=== PATIENT | male | born 1995 | race American Indian/Alaskan Native ===

== ENCOUNTER 2021-07-19 13:03 | Inpatient (IN) | payer SELFPAY ==
[2021-07-19] MEDS ORDERED: LORazepam 2 MG/ML VIAL ONE (13:13)
[2021-07-19] MEDS ORDERED: levETIRAcetam 1000 MG/NS 0.75% 1,000 MG/100 ML BAG IV ONE ×2 (13:16→13:21)
[2021-07-19] MEDS ORDERED: LORazepam 2 MG/ML VIAL IV ONE (13:21)
[2021-07-19] MEDS ORDERED: levETIRAcetam 500 MG in DEXTROSE 5% IN WATER 100 ML IV ONE (13:21)
[2021-07-19] MEDS ORDERED: SODIUM CHLORIDE 0.9% 1000 ML 1,000 ML IV ONE ×2 (13:21→15:16)
[2021-07-19] MEDS ORDERED: propofoL 200 MG/20 ML VIAL IV ONE (13:34)
--- NOTE | 2021-07-19 13:55 | Emergency Department Report ---
HPI - General Chief Complaint: Seizure Time Seen by Provider: 07/19/21 13:19 - HPI HPI: 26-year-old male with history of TBI and seizure disorder noncompliant with medications brought in by EMS after having multiple seizures. It is unknown what seizure medication the patient is supposed to be taking. According to the EMS report, they were called out to the patient's home by the patient's mother who reported that the patient had 3 [id number] seizures lasting approximately 30 seconds. The patient had 2 more seizures in front of the EMS crew and then 3 seizures while in the ambulance in route. He was given 4 mg of IV Ativan which resolved one of the seizures but then shortly thereafter he began with tonic- clonic seizure activity after that. He never regained consciousness between the seizures. His fingerstick blood glucose was 140, blood pressure 130/67, heart rate of 90, and saturation of 99% on room air. Further details of the HPI are thus limited due to the patient's current clinical condition. ED Past Medical Hx - Past Medical History Previous Medical History?: Yes Hx Seizures: Yes ED Review of Systems ROS: Stated complaint: SIEZURE Other details as noted in HPI Comment: Unobtainable due to pts medical conditions Physical Exam - Physical Exam Vital Signs: Vital Signs 07/19/21 13:06 Pulse Rate 70 Respiratory 16 Rate Blood Pressure 136/67 [Left] O2 Sat by Pulse 100 Oximetry Physical Exam: GENERAL: Well developed and well nourished. Obtunded and unresponsive. HEAD: Normocephalic. No obvious signs of trauma. ENT: Moist mucous membranes. Foaming at the mouth. EYES: Patient's eyes are closed. When the eyelids are retracted, the right pupil is dilated while the left is constricted. The left eyes deviated up and out. Both pupils are reactive to light. NECK: Supple. Trachea is midline. LUNGS: Snoring respirations. Equal chest rise bilaterally. Clear to auscultation bilaterally. CARDIOVASCULAR: Tachycardic but with regular rhythm. No murmurs or rubs. VASCULAR: Cap refill < 2 seconds ABDOMEN: Abdomen is soft and nondistended. There is no significant guarding or rebound. SKIN: Skin is warm and dry NEURO: Patient is obtunded and unresponsive. Shivering and with intermittent posturing and muscle contractions. Increased tone throughout. MUSCULOSKELETAL: No obvious deformities. ED Course Vital Signs 07/19/21 13:06 Pulse Rate 70 Respiratory 16 Rate Blood Pressure 136/67 [Left] O2 Sat by Pulse 100 Oximetry - Intubation Sedative: Etomidate Mg Given: 20 Paralytic: Rocuronium Mg Given: 100 Laryngoscope: fiberoptic video scope Size: 4 Assist Device Used: fiberoptic device ET Tube Size: 7.5 Tube Secured Depth (cm): 24 Tube Secured Location: lips Tube Placement Confirmation: visualized tube passing t, equal breath sounds bilat, confirmation by capnometr Patient Tolerated Procedure: well, no complications Intubation Complications: none ED Medical Decision Making - Lab Data Result diagrams: 07/19/21 14:21 07/19/21 14:21 Lab Results 07/19/21 07/19/21 07/19/21 Range/Units 14:21 14:21 14:21 WBC 27.8 H (4.5-11.0) K/mm3 RBC 5.28 H (3.65-5.03) M/mm3 Hgb 16.2 H (11.8-15.2) gm/dl Hct 49.5 H (35.5-45.6) % MCV 94 (84-94) fl MCH 31 (28-32) pg MCHC 33 (32-34) % RDW 13.5 (13.2-15.2) % Plt Count 247 (140-440) K/mm3 Add Manual Diff Complete Total Counted 100 Seg Neuts % (Manual) 90.0 H (40.0-70.0) % Band Neutrophils % 0 % Lymphocytes % (Manual) 5.0 L (13.4-35.0) % Reactive Lymphs % (Man) 1.0 % Monocytes % (Manual) 1.0 (0.0-7.3) % Eosinophils % (Manual) 2.0 (0.0-4.3) % Basophils % (Manual) 0 (0.0-1.8) % Metamyelocytes % 1.0 % Myelocytes % 0 % Promyelocytes % 0 % Blast Cells % 0 % Nucleated RBC % Not Reportable Seg Neutrophils # Man 25.0 H (1.8-7.7) K/mm3 Band Neutrophils # 0.0 K/mm3 Lymphocytes # (Manual) 1.4 (1.2-5.4) K/mm3 Abs React Lymphs (Man) 0.3 K/mm3 Monocytes # (Manual) 0.3 (0.0-0.8) K/mm3 Eosinophils # (Manual) 0.6 H (0.0-0.4) K/mm3 Basophils # (Manual) 0.0 (0.0-0.1) K/mm3 Metamyelocytes # 0.3 K/mm3 Myelocytes # 0.0 K/mm3 Promyelocytes # 0.0 K/mm3 Blast Cells # 0.0 K/mm3 WBC Morphology Not Reportable Hypersegmented Neuts Not Reportable Hyposegmented Neuts Not Reportable Hypogranular Neuts Not Reportable Smudge Cells Not Reportable Toxic Granulation Not Reportable Toxic Vacuolation Not Reportable Dohle Bodies Not Reportable Pelger-Huet Anomaly Not Reportable Yvon Rods Not Reportable Platelet Estimate Consistent w auto Clumped Platelets Not Reportable Plt Clumps, EDTA Not Reportable Large Platelets Not Reportable Giant Platelets Not Reportable Platelet Satelliting Not Reportable Plt Morphology Comment Not Reportable RBC Morphology Normal Dimorphic RBCs Not Reportable Polychromasia Not Reportable Hypochromasia Not Reportable Poikilocytosis Not Reportable Anisocytosis Not Reportable Microcytosis Not Reportable Macrocytosis Not Reportable Spherocytes Not Reportable Pappenheimer Bodies Not Reportable Sickle Cells Not Reportable Target Cells Not Reportable Tear Drop Cells Not Reportable Ovalocytes Not Reportable Helmet Cells Not Reportable Benavides-Nicholls Bodies Not Reportable [place] Rings Not Reportable [place] Cells Not Reportable Bite Cells Not Reportable Crenated Cell Not Reportable Elliptocytes Not Reportable Acanthocytes (Spur) Not Reportable Rouleaux Not Reportable Hemoglobin C Crystals Not Reportable Schistocytes Not Reportable Malaria parasites Not Reportable Heath Bodies Not Reportable Hem Pathologist Commnt No PT 15.3 H (12.2-14.9) Sec. INR 1.09 (0.87-1.13) APTT 25.8 (24.2-36.6) Sec. ABG pH (7.350-7.450) pH Units ABG pCO2 mm Hg ABG pO2 (80.0-90.0) mm Hg ABG HCO3 (20.0-26.0) mmol/L ABG O2 Saturation (95.0-99.0) % ABG O2 Content (0.0-44) ABG Base Excess (-2.0-3.0) mmol/L ABG Hemoglobin (14.0-18.0) gm/dl ABG Carboxyhemoglobin (0.0-5.0) % ABG Methemoglobin (0.0-1.5) % Oxyhemoglobin (95.0-99.0) % FiO2 % Sodium 143 (137-145) mmol/L Potassium 3.4 L (3.6-5.0) mmol/L Chloride 107.5 H (98-107) mmol/L Carbon Dioxide 15 L (22-30) mmol/L Anion Gap 24 mmol/L BUN 15 (9-20) mg/dL Creatinine 1.4 H (0.8-1.3) mg/dL Estimated GFR > 60 ml/min BUN/Creatinine Ratio 11 % Glucose 108 H (75-100) mg/dL Lactic Acid (0.7-2.0) mmol/L Calcium 8.5 (8.4-10.2) mg/dL Magnesium 2.80 H (1.7-2.3) mg/dL Total Bilirubin < 0.20 (0.1-1.2) mg/dL Direct Bilirubin < 0.2 (0-0.2) mg/dL Indirect Bilirubin 0.0 mg/dL AST 44 H (5-40) units/L ALT 23 (7-56) units/L Alkaline Phosphatase 79 (35-129) units/L Ammonia (25-60) umol/L Total Protein 7.4 (6.3-8.2) g/dL Albumin 4.8 (3.9-5) g/dL Albumin/Globulin Ratio 1.8 % Urine Color (Yellow) Urine Turbidity (Clear) Urine pH (5.0-7.0) Ur Specific [place] (1.003-1.030) Urine Protein (Negative) mg/dL Urine Glucose (UA) (Negative) mg/dL Urine Ketones (Negative) mg/dL Urine Blood (Negative) Urine Nitrite (Negative) Urine Bilirubin (Negative) Urine Urobilinogen (<2.0) mg/dL Ur Leukocyte Esterase (Negative) Urine WBC (Auto) (0.0-6.0) /HPF Urine RBC (Auto) (0.0-6.0) /HPF Urine Bacteria (Auto) (Negative) /HPF Calcium Oxalate Crystal Hyaline Casts /LPF Urine Mucus /HPF Salicylates (2.8-20.0) mg/dL Urine Opiates Screen Urine Methadone Screen Acetaminophen (10.0-30.0) ug/mL Ur Barbiturates Screen Ur Phencyclidine Scrn Ur Amphetamines Screen U Benzodiazepines Scrn Urine Cocaine Screen U Marijuana (THC) Screen Drugs of Abuse Note Plasma/Serum Alcohol (0-0.07) % 07/19/21 07/19/21 07/19/21 Range/Units 14:21 14:21 14:21 WBC (4.5-11.0) K/mm3 RBC (3.65-5.03) M/mm3 Hgb (11.8-15.2) gm/dl Hct (35.5-45.6) % MCV (84-94) fl MCH (28-32) pg MCHC (32-34) % RDW (13.2-15.2) % Plt Count (140-440) K/mm3 Add Manual Diff Total Counted Seg Neuts % (Manual) (40.0-70.0) % Band Neutrophils % % Lymphocytes % (Manual) (13.4-35.0) % Reactive Lymphs % (Man) % Monocytes % (Manual) (0.0-7.3) % Eosinophils % (Manual) (0.0-4.3) % Basophils % (Manual) (0.0-1.8) % Metamyelocytes % % Myelocytes % % Promyelocytes % % Blast Cells % % Nucleated RBC % Seg Neutrophils # Man (1.8-7.7) K/mm3 Band Neutrophils # K/mm3 Lymphocytes # (Manual) (1.2-5.4) K/mm3 Abs React Lymphs (Man) K/mm3 Monocytes # (Manual) (0.0-0.8) K/mm3 Eosinophils # (Manual) (0.0-0.4) K/mm3 Basophils # (Manual) (0.0-0.1) K/mm3 Metamyelocytes # K/mm3 Myelocytes # K/mm3 Promyelocytes # K/mm3 Blast Cells # K/mm3 WBC Morphology Hypersegmented Neuts Hyposegmented Neuts Hypogranular Neuts Smudge Cells Toxic Granulation Toxic Vacuolation Dohle Bodies Pelger-Huet Anomaly Yvon Rods Platelet Estimate Clumped Platelets Plt Clumps, EDTA Large Platelets Giant Platelets Platelet Satelliting Plt Morphology Comment RBC Morphology Dimorphic RBCs Polychromasia Hypochromasia Poikilocytosis Anisocytosis Microcytosis Macrocytosis Spherocytes Pappenheimer Bodies Sickle Cells Target Cells Tear Drop Cells Ovalocytes Helmet Cells Benavides-Nicholls Bodies [place] Rings [place] Cells Bite Cells Crenated Cell Elliptocytes Acanthocytes (Spur) Rouleaux Hemoglobin C Crystals Schistocytes Malaria parasites Heath Bodies Hem Pathologist Commnt PT (12.2-14.9) Sec. INR (0.87-1.13) APTT (24.2-36.6) Sec. ABG pH (7.350-7.450) pH Units ABG pCO2 mm Hg ABG pO2 (80.0-90.0) mm Hg ABG HCO3 (20.0-26.0) mmol/L ABG O2 Saturation (95.0-99.0) % ABG O2 Content (0.0-44) ABG Base Excess (-2.0-3.0) mmol/L ABG Hemoglobin (14.0-18.0) gm/dl ABG Carboxyhemoglobin (0.0-5.0) % ABG Methemoglobin (0.0-1.5) % Oxyhemoglobin (95.0-99.0) % FiO2 % Sodium (137-145) mmol/L Potassium (3.6-5.0) mmol/L Chloride (98-107) mmol/L Carbon Dioxide (22-30) mmol/L Anion Gap mmol/L BUN (9-20) mg/dL Creatinine (0.8-1.3) mg/dL Estimated GFR ml/min BUN/Creatinine Ratio % Glucose (75-100) mg/dL Lactic Acid (0.7-2.0) mmol/L Calcium (8.4-10.2) mg/dL Magnesium (1.7-2.3) mg/dL Total Bilirubin (0.1-1.2) mg/dL Direct Bilirubin (0-0.2) mg/dL Indirect Bilirubin mg/dL AST (5-40) units/L ALT (7-56) units/L Alkaline Phosphatase (35-129) units/L Ammonia 94.0 H (25-60) umol/L Total Protein (6.3-8.2) g/dL Albumin (3.9-5) g/dL Albumin/Globulin Ratio % Urine Color (Yellow) Urine Turbidity (Clear) Urine pH (5.0-7.0) Ur Specific [place] (1.003-1.030) Urine Protein (Negative) mg/dL Urine Glucose (UA) (Negative) mg/dL Urine Ketones (Negative) mg/dL Urine Blood (Negative) Urine Nitrite (Negative) Urine Bilirubin (Negative) Urine Urobilinogen (<2.0) mg/dL Ur Leukocyte Esterase (Negative) Urine WBC (Auto) (0.0-6.0) /HPF Urine RBC (Auto) (0.0-6.0) /HPF Urine Bacteria (Auto) (Negative) /HPF Calcium Oxalate Crystal Hyaline Casts /LPF Urine Mucus /HPF Salicylates < 0.3 L (2.8-20.0) mg/dL Urine Opiates Screen Urine Methadone Screen Acetaminophen 5.0 L (10.0-30.0) ug/mL Ur Barbiturates Screen Ur Phencyclidine Scrn Ur Amphetamines Screen U Benzodiazepines Scrn Urine Cocaine Screen U Marijuana (THC) Screen Drugs of Abuse Note Plasma/Serum Alcohol (0-0.07) % 07/19/21 07/19/21 07/19/21 Range/Units 14:21 14:21 14:30 WBC (4.5-11.0) K/mm3 RBC (3.65-5.03) M/mm3 Hgb (11.8-15.2) gm/dl Hct (35.5-45.6) % MCV (84-94) fl MCH (28-32) pg MCHC (32-34) % RDW (13.2-15.2) % Plt Count (140-440) K/mm3 Add Manual Diff Total Counted Seg Neuts % (Manual) (40.0-70.0) % Band Neutrophils % % Lymphocytes % (Manual) (13.4-35.0) % Reactive Lymphs % (Man) % Monocytes % (Manual) (0.0-7.3) % Eosinophils % (Manual) (0.0-4.3) % Basophils % (Manual) (0.0-1.8) % Metamyelocytes % % Myelocytes % % Promyelocytes % % Blast Cells % % Nucleated RBC % Seg Neutrophils # Man (1.8-7.7) K/mm3 Band Neutrophils # K/mm3 Lymphocytes # (Manual) (1.2-5.4) K/mm3 Abs React Lymphs (Man) K/mm3 Monocytes # (Manual) (0.0-0.8) K/mm3 Eosinophils # (Manual) (0.0-0.4) K/mm3 Basophils # (Manual) (0.0-0.1) K/mm3 Metamyelocytes # K/mm3 Myelocytes # K/mm3 Promyelocytes # K/mm3 Blast Cells # K/mm3 WBC Morphology TNR Hypersegmented Neuts Hyposegmented Neuts Hypogranular Neuts Smudge Cells Toxic Granulation Toxic Vacuolation Dohle Bodies Pelger-Huet Anomaly Yvon Rods Platelet Estimate Clumped Platelets Plt Clumps, EDTA Large Platelets Giant Platelets Platelet Satelliting Plt Morphology Comment RBC Morphology Dimorphic RBCs Polychromasia Hypochromasia Poikilocytosis Anisocytosis Microcytosis Macrocytosis Spherocytes Pappenheimer Bodies Sickle Cells Target Cells Tear Drop Cells Ovalocytes Helmet Cells Benavides-Nicholls Bodies [place] Rings [place] Cells Bite Cells Crenated Cell Elliptocytes Acanthocytes (Spur) Rouleaux Hemoglobin C Crystals Schistocytes Malaria parasites Heath Bodies Hem Pathologist Commnt PT (12.2-14.9) Sec. INR (0.87-1.13) APTT (24.2-36.6) Sec. ABG pH (7.350-7.450) pH Units ABG pCO2 mm Hg ABG pO2 (80.0-90.0) mm Hg ABG HCO3 (20.0-26.0) mmol/L ABG O2 Saturation (95.0-99.0) % ABG O2 Content (0.0-44) ABG Base Excess (-2.0-3.0) mmol/L ABG Hemoglobin (14.0-18.0) gm/dl ABG Carboxyhemoglobin (0.0-5.0) % ABG Methemoglobin (0.0-1.5) % Oxyhemoglobin (95.0-99.0) % FiO2 % Sodium (137-145) mmol/L Potassium (3.6-5.0) mmol/L Chloride (98-107) mmol/L Carbon Dioxide (22-30) mmol/L Anion Gap mmol/L BUN (9-20) mg/dL Creatinine (0.8-1.3) mg/dL Estimated GFR ml/min BUN/Creatinine Ratio % Glucose (75-100) mg/dL Lactic Acid (0.7-2.0) mmol/L Calcium (8.4-10.2) mg/dL Magnesium (1.7-2.3) mg/dL Total Bilirubin (0.1-1.2) mg/dL Direct Bilirubin (0-0.2) mg/dL Indirect Bilirubin mg/dL AST (5-40) units/L ALT (7-56) units/L Alkaline Phosphatase (35-129) units/L Ammonia (25-60) umol/L Total Protein (6.3-8.2) g/dL Albumin (3.9-5) g/dL Albumin/Globulin Ratio % Urine Color Straw (Yellow) Urine Turbidity Clear (Clear) Urine pH 5.0 (5.0-7.0) Ur Specific [place] 1.011 (1.003-1.030) Urine Protein 30 mg/dl (Negative) mg/dL Urine Glucose (UA) Neg (Negative) mg/dL Urine Ketones Neg (Negative) mg/dL Urine Blood Sm (Negative) Urine Nitrite Neg (Negative) Urine Bilirubin Neg (Negative) Urine Urobilinogen < 2.0 (<2.0) mg/dL Ur Leukocyte Esterase Neg (Negative) Urine WBC (Auto) 1.0 (0.0-6.0) /HPF Urine RBC (Auto) 0.0 (0.0-6.0) /HPF Urine Bacteria (Auto) 1+ (Negative) /HPF Calcium Oxalate Crystal 1+ Hyaline Casts 1 /LPF Urine Mucus Few /HPF Salicylates (2.8-20.0) mg/dL Urine Opiates Screen Urine Methadone Screen Acetaminophen (10.0-30.0) ug/mL Ur Barbiturates Screen Ur Phencyclidine Scrn Ur Amphetamines Screen U Benzodiazepines Scrn Urine Cocaine Screen U Marijuana (THC) Screen Drugs of Abuse Note Plasma/Serum Alcohol < 0.01 (0-0.07) % 07/19/21 07/19/21 07/19/21 Range/Units 14:30 14:45 15:59 WBC (4.5-11.0) K/mm3 RBC (3.65-5.03) M/mm3 Hgb (11.8-15.2) gm/dl Hct (35.5-45.6) % MCV (84-94) fl MCH (28-32) pg MCHC (32-34) % RDW (13.2-15.2) % Plt Count (140-440) K/mm3 Add Manual Diff Total Counted Seg Neuts % (Manual) (40.0-70.0) % Band Neutrophils % % Lymphocytes % (Manual) (13.4-35.0) % Reactive Lymphs % (Man) % Monocytes % (Manual) (0.0-7.3) % Eosinophils % (Manual) (0.0-4.3) % Basophils % (Manual) (0.0-1.8) % Metamyelocytes % % Myelocytes % % Promyelocytes % % Blast Cells % % Nucleated RBC % Seg Neutrophils # Man (1.8-7.7) K/mm3 Band Neutrophils # K/mm3 Lymphocytes # (Manual) (1.2-5.4) K/mm3 Abs React Lymphs (Man) K/mm3 Monocytes # (Manual) (0.0-0.8) K/mm3 Eosinophils # (Manual) (0.0-0.4) K/mm3 Basophils # (Manual) (0.0-0.1) K/mm3 Metamyelocytes # K/mm3 Myelocytes # K/mm3 Promyelocytes # K/mm3 Blast Cells # K/mm3 WBC Morphology Hypersegmented Neuts Hyposegmented Neuts Hypogranular Neuts Smudge Cells Toxic Granulation Toxic Vacuolation Dohle Bodies Pelger-Huet Anomaly Yvon Rods Platelet Estimate Clumped Platelets Plt Clumps, EDTA Large Platelets Giant Platelets Platelet Satelliting Plt Morphology Comment RBC Morphology Dimorphic RBCs Polychromasia Hypochromasia Poikilocytosis Anisocytosis Microcytosis Macrocytosis Spherocytes Pappenheimer Bodies Sickle Cells Target Cells Tear Drop Cells Ovalocytes Helmet Cells Benavides-Nicholls Bodies [place] Rings Unique Cells Bite Cells Crenated Cell Elliptocytes Acanthocytes (Spur) Rouleaux Hemoglobin C Crystals Schistocytes Malaria parasites Heath Bodies Hem Pathologist Commnt PT (12.2-14.9) Sec. INR (0.87-1.13) APTT (24.2-36.6) Sec. ABG pH 7.174 L* (7.350-7.450) pH Units ABG pCO2 47.7 mm Hg ABG pO2 104.0 H (80.0-90.0) mm Hg ABG HCO3 17.2 L (20.0-26.0) mmol/L ABG O2 Saturation 96.7 (95.0-99.0) % ABG O2 Content 21.4 (0.0-44) ABG Base Excess -11.3 L (-2.0-3.0) mmol/L ABG Hemoglobin 16.2 (14.0-18.0) gm/dl ABG Carboxyhemoglobin 2.0 (0.0-5.0) % ABG Methemoglobin 0.8 (0.0-1.5) % Oxyhemoglobin 94.1 L (95.0-99.0) % FiO2 70 % Sodium (137-145) mmol/L Potassium (3.6-5.0) mmol/L Chloride (98-107) mmol/L Carbon Dioxide (22-30) mmol/L Anion Gap mmol/L BUN (9-20) mg/dL Creatinine (0.8-1.3) mg/dL Estimated GFR ml/min BUN/Creatinine Ratio % Glucose (75-100) mg/dL Lactic Acid 3.50 H* (0.7-2.0) mmol/L Calcium (8.4-10.2) mg/dL Magnesium (1.7-2.3) mg/dL Total Bilirubin (0.1-1.2) mg/dL Direct Bilirubin (0-0.2) mg/dL Indirect Bilirubin mg/dL AST (5-40) units/L ALT (7-56) units/L Alkaline Phosphatase (35-129) units/L Ammonia (25-60) umol/L Total Protein (6.3-8.2) g/dL Albumin (3.9-5) g/dL Albumin/Globulin Ratio % Urine Color (Yellow) Urine Turbidity (Clear) Urine pH (5.0-7.0) Ur Specific [place] (1.003-1.030) Urine Protein (Negative) mg/dL Urine Glucose (UA) (Negative) mg/dL Urine Ketones (Negative) mg/dL Urine Blood (Negative) Urine Nitrite (Negative) Urine Bilirubin (Negative) Urine Urobilinogen (<2.0) mg/dL Ur Leukocyte Esterase (Negative) Urine WBC (Auto) (0.0-6.0) /HPF Urine RBC (Auto) (0.0-6.0) /HPF Urine Bacteria (Auto) (Negative) /HPF Calcium Oxalate Crystal Hyaline Casts /LPF Urine Mucus /HPF Salicylates (2.8-20.0) mg/dL Urine Opiates Screen Negative Urine Methadone Screen Negative Acetaminophen (10.0-30.0) ug/mL Ur Barbiturates Screen Negative Ur Phencyclidine Scrn Negative Ur Amphetamines Screen Negative U Benzodiazepines Scrn Negative Urine Cocaine Screen Negative U Marijuana (THC) Screen Negative Drugs of Abuse Note Disclamer Plasma/Serum Alcohol (0-0.07) % - Radiology Data Radiology results: report reviewed - Medical Decision Making 26-year-old male with history of TBI and seizure disorder known to be noncompliant with medications brought in by EMS after multiple seizures at home. He continued to have 3 seizures while in route without regaining consciousness between episodes. He was given 4 mg of IV lorazepam. Upon arrival to emergency department, the patient had another seizure. He was given 4 mg of IV Ativan as well as a loading dose of 1 g of Keppra. He continues to exhibit s hivering, muscle contractions, and physical examination reveals anisocoria as well as left eye deviation up and out. Given that the patient's presentation consistent with status epilepticus, I moved to emergently intubate the patient to secure his airway and to start a propofol drip. Will initiate propofol drip for sedation and add on Versed drip as needed. We will perform very broad work- up including a full set of labs, chest x-ray, CT of the head. We will give 1 L of IV fluids. Chest x-ray reveals no acute abnormalities and ET tube in the correct position Reassessment of the patient after initiation of a propofol drip reveals resolution of previously seen anisocoria and eye deviation as well as resolution of muscle contractions. Will require EEG on admission. ABG reveals metabolic acidosis with pH of 7.17. Labs are significant for several abnormalities including leukocytosis with white blood cell count of 27.8. Hemoglobin is also elevated at 16.2. Creatinine is elevated at 1.4 from unknown baseline. He has hypokalemia with potassium of 3.4 which we will replete. Although I suspect that the patient's leukocytosis may be reactive and secondary to status epilepticus and the marginalization as well as hemoconcentration from severe dehydration, I have initiated full sepsis order set with labs and cultures. We will give broad-spectrum IV vancomycin and ceftriaxone. We will give 30 mL/kg of IV fluid At 3:42 PM I spoke with Dr. Miranda of critical care medicine regarding the case. He accepts the patient for admission to the ICU, agrees with current management CT of the head reveals right frontal lobe encephalomalacia but no acute abnormalities. I spoke with Dr. Sheikh, the on-call hospitalist regarding the case and he accepts the patient for admission will assume care Critical Care Time: Yes Critical care time in (mins) excluding proc time.: 45 Critical care attestation.: If time is entered above; I have spent that time in minutes in the direct care of this critically ill patient, excluding procedure time. Critical care time was spent in the evaluation/assessment, work-up, and management of status epilepticus requiring multiple IV antiepileptics, intubation to secure the airway, review and interpretation of ABG, discussion with specialist, as well as multiple reassessments and reevaluation's ED Disposition Clinical Impression: Metabolic acidosis, Acute respiratory failure with hypoxia, Leukocytosis, Dehydration, Acute kidney injury, Status epilepticus, Hypokalemia Disposition: 09 ADMITTED INPATIENT Is pt being admited?: Yes Condition: Critical Referrals: PRIMARY CARE, [Primary Care Provider] - 3-5 Days
--- NOTE | 2021-07-19 14:15 | XRay Report ---
CHEST 1 VIEW INDICATION: mult seizures ETT and OG. COMPARISON: None. FINDINGS: Support devices: Endotracheal tube tip is approximately 2 cm above the ken. There appears to be an esophagogastric tube with tip projecting at the mid esophagus. Heart: Normal. Lungs/Pleura: No acute pulmonary or pleural findings. IMPRESSION: 1. Endotracheal tube couple centimeters above the ken. 2. There appears to be an orogastric tube with tip at the level of the mid esophagus. This needs to b e removed/repositioned. Signer Name: Noel Galvin MD Signed: 07/19/2021 2:11 PM Workstation Name: [id number]
--- NOTE | 2021-07-19 14:24 | Cat Scan Report ---
CT head/brain wo con INDICATION / CLINICAL INFORMATION: 26 years Male; Multiple seizures, anisocoria. TECHNIQUE: Routine CT head without contrast. All CT scans at this location are performed using CT dos e reduction for ALARA by means of automated exposure control. COMPARISON: None. FINDINGS: BRAIN / INTRACRANIAL CONTENTS: Patient appears to been a craniotomy or trauma in the right posterior frontal region and adjacent parietal region. There is encephalomalacia in the adjacent right frontal lobe region. The brain parenchymal findings also following MCA type pattern in the frontal lobe regio n - old, branch MCA infarct might be considered as well. Please clinically correlate. Otherwise, no acute hemorrhage, mass effect, midline shift, hydrocephalus, or acute, large territori al infarct. No signs of significant atrophy or chronic infarct. No significant white matter abnormali ty seen. CRANIOCERVICAL JUNCTION: No significant abnormality. ORBITS: No significant abnormality of visualized orbits. SINUSES / MASTOIDS: Mild to moderate mucosal thickening seen in the maxillary antra and ethmoids. Sig nificant opacification of the frontal sinuses seen. Mild mucosal thickening seen in the sphenoid. ADDITIONAL FINDINGS: NG tube appears to be coiled in the patient's mouth. IMPRESSION: 1. No focal mass, hemorrhage, hydrocephalus, or acute, large territorial infarct. 2. Area of encephalomalacia in the right frontal lobe. Please clinically correlate. Signer Name: Rashel Bond MD, III Signed: 07/19/2021 2:20 PM Workstation Name: [id number]
[2021-07-19 14:50] LABS: Hematocrit 49.5 % (35.5-45.6); Hemoglobin 16.2 gm/dl (11.8-15.2); Mean Corpuscular HGB Conc 33 % (32-34); Mean Corpuscular Volume 94 fl (84-94); Platelet Count 247 K/mm3 (140-440); Red Blood Count 5.28 M/mm3 (3.65-5.03); Red Cell Distribution Width 13.5 % (13.2-15.2)
[2021-07-19 15:00] LABS: INR 1.09 (0.87-1.13); Partial Thromboplastin Time 25.8 Sec. (24.2-36.6)
[2021-07-19 15:01] LABS: ABG Base Excess -11.3 mmol/L (-2.0-3.0); ABG HCO3 17.2 mmol/L (20.0-26.0); ABG Methemoglobin 0.8 % (0.0-1.5); ABG Oxygen Saturation 96.7 % (95.0-99.0); ABG PCO2 47.7 mm Hg
[2021-07-19 15:03] LABS: Alanine Aminotransferase 23 units/L (7-56); Albumin 4.8 g/dL (3.9-5); BUN/Creatinine Ratio 11; Blood Urea Nitrogen 15 mg/dL (9-20); Calcium 8.5 mg/dL (8.4-10.2); Hemolysis Index 11
[2021-07-19 15:05] LABS: Bilirubin,Direct < 0.2 mg/dL (0-0.2)
[2021-07-19 15:07] LABS: Bacteria,Urine 1+ /HPF (Negative); Bilirubin,Urine NEG (Negative); Blood,Urine SM (Negative); Calcium Oxalate Crystals,Urine 1+; Color,Urine Straw (Yellow); Hyaline Casts,Urine 1 /LPF; Mucus,Urine FEW /HPF; Urobilinogen,Urine < 2.0 mg/dL (<2.0)
[2021-07-19 15:08] LABS: ABG PH 7.174 pH Units (7.350-7.450)
[2021-07-19 15:15] LABS: Amphetamine Screen,Urine Negative; Benzodiazepines Screen,Urine Negative; Cannabinoid Screen,Urine Negative; Cocaine Screen,Urine Negative; Methadone Screen,Urine Negative; Opiate Screen,Urine Negative
[2021-07-19] MEDS ORDERED: cefTRIAXone/NS 2 GM/100 ML 2 GM/100 ML BAG IV ONE (15:17)
[2021-07-19 15:35] LABS: Basophils % (Manual) 0 % (0.0-1.8); Total Cells Counted 100
[2021-07-19 15:37] LABS: Platelet Estimate Consistent w Auto; RBC Morphology Normal
[2021-07-19] MEDS ORDERED: VANCOMYCIN 1,250 MG in SODIUM CHLORIDE 0.9% 500 ML 500 ML IV ONE (16:00)
[2021-07-19] MEDS: MIDAZOLAM 100 MG in SODIUM CHLORIDE 0.9% 80 ML IV ONE (16:36)
[2021-07-19] MEDS ORDERED: ACETAMINOPHEN 650 MG RECT SUPP PR ONE (20:39)
[2021-07-19] MEDS ORDERED: ACETAMINOPHEN 650 MG RECT SUPP PR PRN (20:39)
[2021-07-19] MEDS ORDERED: ACETAMINOPHEN 325 MG RECT SUPP PR ONE (20:39)
[2021-07-19] MEDS ORDERED: ACETAMINOPHEN 325 MG TAB PO PRN (20:47)
[2021-07-19] MEDS ORDERED: MORPHINE 2 MG/1 ML INJ IV PRN (20:47)
[2021-07-19] MEDS ORDERED: ONDANSETRON 4 MG/2 ML INJ IV PRN (20:47)
[2021-07-19] MEDS ORDERED: SODIUM CHLORIDE 0.9% 1000 ML 1,000 ML IV SCH (21:00)
[2021-07-19] MEDS: levETIRAcetam 1,000 MG in DEXTROSE 5% IN WATER 100 ML IV SCH (22:10)
[2021-07-20 04:25] LABS: ABG Base Excess -6.3 mmol/L (-2.0-3.0); ABG HCO3 17.6 mmol/L (20.0-26.0); ABG Methemoglobin 0.9 % (0.0-1.5); ABG Oxygen Saturation 99.4 % (95.0-99.0); ABG PH 7.371 pH Units (7.350-7.450); ABG PO2 227.3 mm Hg (80.0-90.0)
[2021-07-20 06:10] LABS: Hematocrit 45.9 % (35.5-45.6); Mean Corpuscular HGB Conc 33 % (32-34); Mean Corpuscular Volume 92 fl (84-94); Platelet Count 183 K/mm3 (140-440); Red Blood Count 4.96 M/mm3 (3.65-5.03); Red Cell Distribution Width 13.3 % (13.2-15.2)
[2021-07-20 06:40] LABS: Albumin 3.6 g/dL (3.9-5); Calcium 8.5 mg/dL (8.4-10.2)
[2021-07-20 07:05] LABS: Anisocytosis 1+; Band Neutrophils # (Manual) 0.1 K/mm3; Basophils % (Manual) 0 % (0.0-1.8); Eosinophils % (Manual) 0 % (0.0-4.3); Platelet Estimate Consistent w Auto; Total Cells Counted 200
--- NOTE | 2021-07-20 07:55 | History and Physical Report ---
History of Present Illness Date of examination: 07/19/21 Date of admission: 07/19/21 14:00 Chief complaint: Continued seizures since a.m. History of present illness: 25-year-old male with history of traumatic brain injury and seizure disorder noncompliant with medications, brought in by EMS for multiple seizures. Patient is very noncompliant. EMS was called by the patient's mother and report the patient had bacterial [id number] seizures lasting approximately 32seconds to 1 minute. Patient had 2 more seizures in front of the EMS and 3 seizures while in the ambulance. Patient was given 4 mg of area And was brought to the emergency room. In the emergency room because of recurrent seizures patient was intubated for protection of airway. 26-year-old male with history of TBI and seizure disorder noncompliant with medications brought in by EMS after having multiple seizures. It is unknown what seizure medication the patient is supposed to be taking. According to the EMS report, they were called out to the patient's home by the patient's mother who reported that the patient had 3 [id number] seizures lasting approximately 30 seconds. The patient had 2 more seizures in front of the EMS crew and then 3 seizures while in the ambulance in route. He was given 4 mg of IV Ativan which resolved one of the seizures but then shortly thereafter he began with tonic- clonic seizure activity after that. He never regained consciousness between the seizures. His fingerstick blood glucose was 140, blood pressure 130/67, heart rate of 90, and saturation of 99% on room air. Further details of the HPI are thus limited due to the patient's current clinical condition. 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 Skin no rash no itching Psychiatric no depression no homicidal or suicidal tendencies Hematologic no lymphedema or bruising Endocrine no polydipsia no polyuria no cold intolerance no heat intolerance Past History Past Medical History: seizures, other (Traumatic brain injury) Past Surgical History: Other Social history: lives with family Family history: hypertension Medications and Allergies Allergies Allergy/AdvReac Type Severity Reaction Status Date / Time Unable to Assess Allergy Verified 07/19/21 13:14 Active Meds: Active Medications Acetaminophen (Acetaminophen 650 Mg Rect Supp) 650 mg MT Q4H PRN PRN Reason: Fever >101 Enoxaparin Sodium (Enoxaparin 40 Mg/0.4 Ml Inj) 40 mg SUB-Q QDAY@1000 CASSANDRA Propofol (Diprivan 10 Mg/Ml) 1,000 mg in 100 mls @ 1.837 mls/hr IV TITR CASSANDRA; Protocol Last Admin: 07/20/21 03:50 Dose: 122.48 mcg/kg/min, 45 mls/hr Midazolam HCl 100 mg/ Sodium (Chloride) 100 mls @ 1 mls/hr IV TITR ONE; Protocol Stop: 07/23/21 19:57 Last Admin: 07/19/21 16:36 Dose: 1 mg/hr, 1 mls/hr Sodium Chloride (Nacl 0.9% 1000 Ml) 1,000 mls @ 100 mls/hr IV DIRECT CASSANDRA Levetiracetam 1,000 mg/ (Dextrose) 110 mls @ 400 mls/hr IV Q12HR CASSANDRA Last Admin: 07/19/21 22:10 Dose: 400 mls/hr Morphine Sulfate (Morphine 2 Mg/1 Ml Inj) 2 mg IV Q4H PRN PRN Reason: Pain, Moderate (4-6) Ondansetron HCl (Ondansetron 4 Mg/2 Ml Inj) 4 mg IV Q8H PRN PRN Reason: Nausea And Vomiting Sodium Chloride (Sodium Chloride 0.9% 10 Ml Flush Syringe) 10 ml IV BID CASSANDRA Last Admin: 07/19/21 22:10 Dose: 10 ml Sodium Chloride (Sodium Chloride 0.9% 10 Ml Flush Syringe) 10 ml IV PRN PRN PRN Reason: LINE FLUSH Exam - Physical Exam Narrative exam: Patient is intubated and on ventilator Unresponsive - Constitutional Vitals: Temp Pulse Resp BP Pulse Ox 98.9 F 75 22 123/75 100 07/20/21 06:02 07/20/21 07:00 07/20/21 07:00 07/20/21 07:00 07/20/21 07:00 General appearance: Present: no acute distress, well-nourished - EENT Eyes: Present: PERRL ENT: clear oral mucosa - Neck Neck: Present: supple, normal ROM - Respiratory Respiratory effort: normal Respiratory: bilateral: CTA - Cardiovascular Heart rate: 78 Rhythm: regular Heart Sounds: Present: S1 & S2. Absent: rub, click - Extremities Extremities: pulses symmetrical, No edema Peripheral Pulses: within normal limits - Abdominal General gastrointestinal: Present: soft, non-tender, non-distended, normal bowel sounds Male genitourinary: Present: normal - Rectal Rectal Exam: deferred - Integumentary Integumentary: Present: clear, warm, dry - Musculoskeletal Musculoskeletal: strength equal bilaterally, generalized weakness - Psychiatric Psychiatric: other (Patient intubated) - Neurologic Neurologic: moves all extremities, other - Allied Health Allied health notes reviewed: nursing, case management Results - Labs CBC & Chem 7: 07/20/21 05:48 07/20/21 05:48 Labs: Laboratory Last Values WBC 21.0 K/mm3 (4.5-11.0) H 07/20/21 05:48 RBC 4.96 M/mm3 (3.65-5.03) 07/20/21 05:48 Hgb 15.0 gm/dl (11.8-15.2) 07/20/21 05:48 Hct 45.9 % (35.5-45.6) H 07/20/21 05:48 MCV 92 fl (84-94) 07/20/21 05:48 MCH 30 pg (28-32) 07/20/21 05:48 MCHC 33 % (32-34) 07/20/21 05:48 RDW 13.3 % (13.2-15.2) 07/20/21 05:48 Plt Count 183 K/mm3 (140-440) 07/20/21 05:48 Lymph % (Auto) [place] 07/20/21 05:48 [place] % (Auto) [employer] 07/20/21 05:48 Eos % (Auto) [place] 07/20/21 05:48 Baso % (Auto) [place] 07/20/21 05:48 Lymph # (Auto) [place] 07/20/21 05:48 [place] # (Auto) Gra[employer]ger 07/20/21 05:48 Eos # (Auto) [place] [employer] 07/20/21 05:48 Baso # (Auto) [place] [employer] 07/20/21 05:48 Add Manual Diff Complete 07/20/21 05:48 Total Counted 200 07/20/21 05:48 Seg Neutrophils % [place] 07/20/21 05:48 Seg Neuts % (Manual) 91.0 % (40.0-70.0) H 07/20/21 05:48 Band Neutrophils % 0.5 % 07/20/21 05:48 Lymphocytes % (Manual) 6.5 % (13.4-35.0) L 07/20/21 05:48 Reactive Lymphs % (Man) 0 % 07/20/21 05:48 Monocytes % (Manual) 2.0 % (0.0-7.3) 07/20/21 05:48 Eosinophils % (Manual) 0 % (0.0-4.3) 07/20/21 05:48 Basophils % (Manual) 0 % (0.0-1.8) 07/20/21 05:48 Metamyelocytes % 0 % 07/20/21 05:48 Myelocytes % 0 % 07/20/21 05:48 Promyelocytes % 0 % 07/20/21 05:48 Blast Cells % 0 % 07/20/21 05:48 Nucleated RBC % Not Reportable 07/20/21 05:48 Seg Neutrophils # [place]ger 07/20/21 05:48 Seg Neutrophils # Man 19.1 K/mm3 (1.8-7.7) H 07/20/21 05:48 Band Neutrophils # 0.1 K/mm3 07/20/21 05:48 Lymphocytes # (Manual) 1.4 K/mm3 (1.2-5.4) 07/20/21 05:48 Abs React Lymphs (Man) 0.0 K/mm3 07/20/21 05:48 Monocytes # (Manual) 0.4 K/mm3 (0.0-0.8) 07/20/21 05:48 Eosinophils # (Manual) 0.0 K/mm3 (0.0-0.4) 07/20/21 05:48 Basophils # (Manual) 0.0 K/mm3 (0.0-0.1) 07/20/21 05:48 Metamyelocytes # 0.0 K/mm3 07/20/21 05:48 Myelocytes # 0.0 K/mm3 07/20/21 05:48 Promyelocytes # 0.0 K/mm3 07/20/21 05:48 Blast Cells # 0.0 K/mm3 07/20/21 05:48 WBC Morphology Not Reportable 07/20/21 05:48 Hypersegmented Neuts Not Reportable 07/20/21 05:48 Hyposegmented Neuts Not Reportable 07/20/21 05:48 Hypogranular Neuts Not Reportable 07/20/21 05:48 Smudge Cells Not Reportable 07/20/21 05:48 Toxic Granulation Not Reportable 07/20/21 05:48 Toxic Vacuolation Not Reportable 07/20/21 05:48 Dohle Bodies Not Reportable 07/20/21 05:48 Pelger-Huet Anomaly Not Reportable 07/20/21 05:48 Yvon Rods Not Reportable 07/20/21 05:48 Platelet Estimate Consistent w auto 07/20/21 05:48 Clumped Platelets Not Reportable 07/20/21 05:48 Plt Clumps, EDTA Not Reportable 07/20/21 05:48 Large Platelets Not Reportable 07/20/21 05:48 Giant Platelets Not Reportable 07/20/21 05:48 Platelet Satelliting Not Reportable 07/20/21 05:48 Plt Morphology Comment Not Reportable 07/20/21 05:48 RBC Morphology Not Reportable 07/20/21 05:48 Dimorphic RBCs Not Reportable 07/20/21 05:48 Polychromasia Not Reportable 07/20/21 05:48 Hypochromasia Not Reportable 07/20/21 05:48 Poikilocytosis Not Reportable 07/20/21 05:48 Anisocytosis 1+ 07/20/21 05:48 Microcytosis Not Reportable 07/20/21 05:48 Macrocytosis Not Reportable 07/20/21 05:48 Spherocytes Not Reportable 07/20/21 05:48 Pappenheimer Bodies Not Reportable 07/20/21 05:48 Sickle Cells Not Reportable 07/20/21 05:48 Target Cells Not Reportable 07/20/21 05:48 Tear Drop Cells Not Reportable 07/20/21 05:48 Ovalocytes Not Reportable 07/20/21 05:48 Helmet Cells Not Reportable 07/20/21 05:48 Benavides-Bedford Bodies Not Reportable 07/20/21 05:48 [place] Rings Not Reportable 07/20/21 05:48 Sparks Cells Not Reportable 07/20/21 05:48 Bite Cells Not Reportable 07/20/21 05:48 Crenated Cell Not Reportable 07/20/21 05:48 Elliptocytes Not Reportable 07/20/21 05:48 Acanthocytes (Spur) Not Reportable 07/20/21 05:48 Rouleaux Not Reportable 07/20/21 05:48 Hemoglobin C Crystals Not Reportable 07/20/21 05:48 Schistocytes Not Reportable 07/20/21 05:48 Malaria parasites Not Reportable 07/20/21 05:48 Heath Bodies Not Reportable 07/20/21 05:48 Hem Pathologist Commnt No 07/20/21 05:48 PT 15.3 Sec. (12.2-14.9) H 07/19/21 14:21 INR 1.09 (0.87-1.13) 07/19/21 14:21 APTT 25.8 Sec. (24.2-36.6) 07/19/21 14:21 ABG pH 7.371 pH Units (7.350-7.450) 07/20/21 04:12 ABG pCO2 31.0 mm Hg 07/20/21 04:12 ABG pO2 227.3 mm Hg (80.0-90.0) H 07/20/21 04:12 ABG HCO3 17.6 mmol/L (20.0-26.0) L 07/20/21 04:12 ABG O2 Saturation 99.4 % (95.0-99.0) H 07/20/21 04:12 ABG O2 Content 21.7 (0.0-44) 07/20/21 04:12 ABG Base Excess -6.3 mmol/L (-2.0-3.0) L 07/20/21 04:12 ABG Hemoglobin 15.5 gm/dl (14.0-18.0) 07/20/21 04:12 ABG Carboxyhemoglobin 0.9 % (0.0-5.0) 07/20/21 04:12 ABG Methemoglobin 0.9 % (0.0-1.5) 07/20/21 04:12 Oxyhemoglobin 97.6 % (95.0-99.0) 07/20/21 04:12 FiO2 60 % 07/20/21 04:12 Sodium 143 mmol/L (137-145) 07/20/21 05:48 Potassium 3.5 mmol/L (3.6-5.0) L 07/20/21 05:48 Chloride 115.2 mmol/L (98-107) H 07/20/21 05:48 Carbon Dioxide 15 mmol/L (22-30) L 07/20/21 05:48 Anion Gap 16 mmol/L 07/20/21 05:48 BUN 23 mg/dL (9-20) H 07/20/21 05:48 Creatinine 2.5 mg/dL (0.8-1.3) H D 07/20/21 05:48 Estimated GFR 38 ml/min 07/20/21 05:48 BUN/Creatinine Ratio 9 % 07/20/21 05:48 Glucose 90 mg/dL (75-100) 07/20/21 05:48 Lactic Acid 2.00 mmol/L (0.7-2.0) 07/20/21 05:48 Calcium 8.5 mg/dL (8.4-10.2) 07/20/21 05:48 Magnesium 2.80 mg/dL (1.7-2.3) H 07/19/21 14:21 Total Bilirubin 0.80 mg/dL (0.1-1.2) 07/20/21 05:48 Direct Bilirubin < 0.2 mg/dL (0-0.2) 07/19/21 14:21 Indirect Bilirubin 0.0 mg/dL 07/19/21 14:21 AST 30 units/L (5-40) 07/20/21 05:48 ALT 18 units/L (7-56) 07/20/21 05:48 Alkaline Phosphatase 63 units/L (35-129) 07/20/21 05:48 Ammonia 94.0 umol/L (25-60) H 07/19/21 14:21 Total Protein 6.4 g/dL (6.3-8.2) 07/20/21 05:48 Albumin 3.6 g/dL (3.9-5) L 07/20/21 05:48 Albumin/Globulin Ratio 1.3 % 07/20/21 05:48 Urine Color Straw (Yellow) 07/19/21 14:30 Urine Turbidity Clear (Clear) 07/19/21 14:30 Urine pH 5.0 (5.0-7.0) 07/19/21 14:30 Ur Specific [place] 1.011 (1.003-1.030) 07/19/21 14:30 Urine Protein 30 mg/dl mg/dL (Negative) 07/19/21 14:30 Urine Glucose (UA) Neg mg/dL (Negative) 07/19/21 14:30 Urine Ketones Neg mg/dL (Negative) 07/19/21 14:30 Urine Blood Sm (Negative) 07/19/21 14:30 Urine Nitrite Neg (Negative) 07/19/21 14:30 Urine Bilirubin Neg (Negative) 07/19/21 14:30 Urine Urobilinogen < 2.0 mg/dL (<2.0) 07/19/21 14:30 Ur Leukocyte Esterase Neg (Negative) 07/19/21 14:30 Urine WBC (Auto) 1.0 /HPF (0.0-6.0) 07/19/21 14:30 Urine RBC (Auto) 0.0 /HPF (0.0-6.0) 07/19/21 14:30 Urine Bacteria (Auto) 1+ /HPF (Negative) 07/19/21 14:30 Calcium Oxalate Crystal 1+ 07/19/21 14:30 Hyaline Casts 1 /LPF 07/19/21 14:30 Urine Mucus Few /HPF 07/19/21 14:30 Salicylates < 0.3 mg/dL (2.8-20.0) L 07/19/21 14:21 Urine Opiates Screen Negative 07/19/21 14:30 Urine Methadone Screen Negative 07/19/21 14:30 Acetaminophen 5.0 ug/mL (10.0-30.0) L 07/19/21 14:21 Ur Barbiturates Screen Negative 07/19/21 14:30 Ur Phencyclidine Scrn Negative 07/19/21 14:30 Ur Amphetamines Screen Negative 07/19/21 14:30 U Benzodiazepines Scrn Negative 07/19/21 14:30 Urine Cocaine Screen Negative 07/19/21 14:30 U Marijuana (THC) Screen Negative 07/19/21 14:30 Drugs of Abuse Note Disclamer 07/19/21 14:30 Plasma/Serum Alcohol < 0.01 % (0-0.07) 07/19/21 14:21 Short CBC 07/19/21 07/20/21 Range/Units 14:21 05:48 WBC 27.8 H 21.0 H (4.5-11.0) K/mm3 Hgb 16.2 H 15.0 (11.8-15.2) gm/dl Hct 49.5 H 45.9 H (35.5-45.6) % Plt Count 247 183 (140-440) K/mm3 BMP 07/19/21 07/20/21 14:21 05:48 Sodium 143 143 Potassium 3.4 L 3.5 L Chloride 107.5 H 115.2 H Carbon Dioxide 15 L 15 L BUN 15 23 H Creatinine 1.4 H 2.5 H D Glucose 108 H 90 Calcium 8.5 8.5 Liver Function 07/19/21 07/20/21 Range/Units 14:21 05:48 Total Bilirubin < 0.20 0.80 (0.1-1.2) mg/dL Direct Bilirubin < 0.2 (0-0.2) mg/dL AST 44 H 30 (5-40) units/L ALT 23 18 (7-56) units/L Alkaline Phosphatase 79 63 (35-129) units/L Albumin 4.8 3.6 L (3.9-5) g/dL Urine 07/19/21 Range/Units 14:30 Urine Color Straw (Yellow) Urine pH 5.0 (5.0-7.0) Ur Specific [place] 1.011 (1.003-1.030) Urine Protein 30 mg/dl (Negative) mg/dL Urine Glucose (UA) Neg (Negative) mg/dL Microbiology: Microbiology 07/19/21 14:21 Peripheral/Venous Blood Culture - Preliminary Culture in Progress 07/19/21 15:13 Peripheral/Venous Blood Culture - Preliminary Culture in Progress - Imaging and Cardiology Imaging and Cardiology: Head CT No focal mass hemorrhage hydrocephalus or acute large territorial infarct. Area of encephalomalacia in the right frontal lobe. Please correlate. Chest x-ray Endotracheal tube in place Nasogastric tube in midesophagus Assessment and Plan Assessment and plan: Critical care statement The high probability of a clinically significant sudden or life-threatening deterioration of the cardiorespiratory system and endocrine system required my full and direct attention, intervention and postoperative management. The aggregate critical care time was 40 minutes. The time is in addition to time spent performing reported procedures but includes the followin: Data review and interpretation 2: Patient assessment and monitoring of vital signs 3: Documentation 4:: Medication orders and management Advance Directives: Yes (Full code) VTE prophylaxis?: Chemical Plan of care discussed with patient/family: Yes - Patient Problems (1) Acute respiratory failure with hypoxia Current Visit: Yes Status: Acute Plan to address problem: Patient initially intubated for protection of airway and hypoxia [employer] Investigator consult requested (2) Status epilepticus Current Visit: Yes Status: Acute Plan to address problem: Patient initiated on IV Keppra If patient still seizes will add Vimpat (3) Acute encephalopathy Current Visit: Yes Status: Acute Plan to address problem: Secondary to status epilepticus Patient intubated (4) Dehydration Current Visit: Yes Status: Acute Plan to address problem: IV fluids for now (5) Leukocytosis Current Visit: Yes Status: Acute Plan to address problem: Possible demargination Meningitis unlikely IV Rocephin empirically (6) Hypokalemia Current Visit: Yes Status: Acute Plan to address problem: supplemented (7) Acute kidney injury Current Visit: Yes Status: Acute Plan to address problem: IV fluids for now (8) DVT prophylaxis Current Visit: Yes Status: Acute Plan to address problem: On heparin and GI prophylaxis (9) Advance care planning Current Visit: Yes Status: Acute Plan to address problem: Discussed with family about disease education care plan diagnosis and prognosis. Patient is full code. Family acknowledged understanding and agreement with care plan. +30 minutes.
[2021-07-20] MEDS ORDERED: ENOXAPARIN 30 MG/0.3 ML INJ SUB-Q SCH (10:00)
[2021-07-20] MEDS ORDERED: ENOXAPARIN 40 MG/0.4 ML INJ SUB-Q SCH (10:00)
[2021-07-20] MEDS: levETIRAcetam 1,000 MG in DEXTROSE 5% IN WATER 100 ML IV SCH ×2 (10:39→22:18)
--- NOTE | 2021-07-20 12:22 | Consultation ---
History of Present Illness Consult date: 07/20/21 Requesting physician: BRITT LAGUERRE Past History Past Medical History: seizures, other (Traumatic brain injury) Past Surgical History: Other Social history: lives with family Family history: hypertension Medications and Allergies Allergies Allergy/AdvReac Type Severity Reaction Status Date / Time Unable to Assess Allergy Verified 07/19/21 13:14 Active Meds: Active Medications Acetaminophen (Acetaminophen 650 Mg Rect Supp) 650 mg [place] Q4H PRN PRN Reason: Fever >101 Enoxaparin Sodium (Enoxaparin 40 Mg/0.4 Ml Inj) 40 mg SUB-Q QDAY@1000 CASSANDRA Last Admin: 07/20/21 10:03 Dose: 40 mg Propofol (Diprivan 10 Mg/Ml) 1,000 mg in 100 mls @ 1.837 mls/hr IV TITR CASSANDRA; Protocol Last Admin: 07/20/21 03:50 Dose: 122.48 mcg/kg/min, 45 mls/hr Midazolam HCl 100 mg/ Sodium (Chloride) 100 mls @ 1 mls/hr IV TITR ONE; Protocol Stop: 07/23/21 19:57 Last Titration: 07/20/21 08:30 Dose: 3 mg/hr, 3 mls/hr Sodium Chloride (Nacl 0.9% 1000 Ml) 1,000 mls @ 100 mls/hr IV DIRECT CASSANDRA Levetiracetam 1,000 mg/ (Dextrose) 110 mls @ 400 mls/hr IV Q12HR CASSANDRA Last Admin: 07/20/21 10:39 Dose: 400 mls/hr Morphine Sulfate (Morphine 2 Mg/1 Ml Inj) 2 mg IV Q4H PRN PRN Reason: Pain, Moderate (4-6) Ondansetron HCl (Ondansetron 4 Mg/2 Ml Inj) 4 mg IV Q8H PRN PRN Reason: Nausea And Vomiting Sodium Chloride (Sodium Chloride 0.9% 10 Ml Flush Syringe) 10 ml IV BID [facility] Last Admin: 07/20/21 10:04 Dose: 10 ml Sodium Chloride (Sodium Chloride 0.9% 10 Ml Flush Syringe) 10 ml IV PRN PRN PRN Reason: LINE FLUSH Physical Examination Vital signs: Vital Signs Resp Pulse Ox 32 H 98 07/19/21 13:03 07/19/21 13:03 Results - Laboratory Findings CBC and BMP: 07/20/21 05:48 07/20/21 05:48 ABG ABG pH 7.371 pH Units (7.350-7.450) 07/20/21 04:12 ABG pCO2 31.0 mm Hg 07/20/21 04:12 ABG pO2 227.3 mm Hg (80.0-90.0) H 07/20/21 04:12 ABG O2 Saturation 99.4 % (95.0-99.0) H 07/20/21 04:12 PT/INR, D-dimer PT 15.3 Sec. (12.2-14.9) H 07/19/21 14:21 INR 1.09 (0.87-1.13) 07/19/21 14:21 Abnormal lab findings: Abnormal Labs 07/19/21 07/19/21 07/19/21 14:21 14:21 14:21 WBC 27.8 H RBC 5.28 H Hgb 16.2 H Hct 49.5 H Seg Neuts % (Manual) 90.0 H Lymphocytes % (Manual) 5.0 L Seg Neutrophils # Man 25.0 H Eosinophils # (Manual) 0.6 H PT 15.3 H ABG pH ABG pO2 ABG HCO3 ABG O2 Saturation ABG Base Excess Oxyhemoglobin Potassium 3.4 L Chloride 107.5 H Carbon Dioxide 15 L BUN Creatinine 1.4 H Glucose 108 H Lactic Acid Magnesium 2.80 H AST 44 H Ammonia Albumin Salicylates Acetaminophen 07/19/21 07/19/21 07/19/21 14:21 14:21 14:21 WBC RBC Hgb Hct Seg Neuts % (Manual) Lymphocytes % (Manual) Seg Neutrophils # Man Eosinophils # (Manual) PT ABG pH ABG pO2 ABG HCO3 ABG O2 Saturation ABG Base Excess Oxyhemoglobin Potassium Chloride Carbon Dioxide BUN Creatinine Glucose Lactic Acid Magnesium AST Ammonia 94.0 H Albumin Salicylates < 0.3 L Acetaminophen 5.0 L 07/19/21 07/19/21 07/20/21 14:45 15:59 04:12 WBC RBC Hgb Hct Seg Neuts % (Manual) Lymphocytes % (Manual) Seg Neutrophils # Man Eosinophils # (Manual) PT ABG pH 7.174 L* ABG pO2 104.0 H 227.3 H ABG HCO3 17.2 L 17.6 L ABG O2 Saturation 99.4 H ABG Base Excess -11.3 L -6.3 L Oxyhemoglobin 94.1 L Potassium Chloride Carbon Dioxide BUN Creatinine Glucose Lactic Acid 3.50 H* Magnesium AST Ammonia Albumin Salicylates Acetaminophen 07/20/21 07/20/21 05:48 05:48 WBC 21.0 H RBC Hgb Hct 45.9 H Seg Neuts % (Manual) 91.0 H Lymphocytes % (Manual) 6.5 L Seg Neutrophils # Man 19.1 H Eosinophils # (Manual) PT ABG pH ABG pO2 ABG HCO3 ABG O2 Saturation ABG Base Excess Oxyhemoglobin Potassium 3.5 L Chloride 115.2 H Carbon Dioxide 15 L BUN 23 H Creatinine 2.5 H D Glucose Lactic Acid Magnesium AST Ammonia Albumin 3.6 L Salicylates Acetaminophen
--- NOTE | 2021-07-20 20:30 | Progress Note ---
Assessment and Plan Critical care statement The high probability of a clinically significant sudden or life-threatening deterioration of the cardiorespiratory system and endocrine system required my full and direct attention, intervention and postoperative management. The aggregate critical care time was 40 minutes. The time is in addition to time spent performing reported procedures but includes the followin: Data review and interpretation 2: Patient assessment and monitoring of vital signs 3: Documentation 4:: Medication orders and management - Patient Problems (1) Acute respiratory failure with hypoxia Current Visit: Yes Status: Acute Plan to address problem: Patient initially intubated for protection of airway and hypoxia Financial Services Specialist consult requested (2) Status epilepticus Current Visit: Yes Status: Acute Plan to address problem: Patient initiated on IV Keppra If patient still seizes will add Vimpat (3) Acute encephalopathy Current Visit: Yes Status: Acute Plan to address problem: Secondary to status epilepticus Patient intubated (4) Dehydration Current Visit: Yes Status: Acute Plan to address problem: IV fluids for now (5) Leukocytosis Current Visit: Yes Status: Acute Plan to address problem: Possible demargination Meningitis unlikely IV Rocephin empirically (6) Hypokalemia Current Visit: Yes Status: Acute Plan to address problem: supplemented (7) Acute kidney injury Current Visit: Yes Status: Acute Plan to address problem: IV fluids for now (8) DVT prophylaxis Current Visit: Yes Status: Acute Plan to address problem: On heparin and GI prophylaxis (9) Advance care planning Current Visit: Yes Status: Acute Plan to address problem: Discussed with family about disease education care plan diagnosis and prognosis. Patient is full code. Family acknowledged understanding and agreement with care plan. +30 minutes. Subjective Date of service: 07/20/21 Objective - Exam Narrative Exam: Patient is intubated and on ventilator Unresponsive - Constitutional Vitals: Vital Signs - 12hr 07/20/21 07/20/21 07/20/21 09:00 10:00 11:00 Temperature Pulse Rate 84 73 70 Respiratory 22 22 22 Rate Blood Pressure 122/67 119/72 111/69 O2 Sat by Pulse 100 100 100 Oximetry 07/20/21 07/20/21 07/20/21 11:59 12:00 13:00 Temperature Pulse Rate 71 76 Respiratory 22 22 Rate Blood Pressure 121/77 112/66 O2 Sat by Pulse 100 100 100 Oximetry 07/20/21 07/20/21 07/20/21 14:00 15:00 16:00 Temperature Pulse Rate 72 70 74 Respiratory 22 22 22 Rate Blood Pressure 111/70 121/76 112/67 O2 Sat by Pulse 100 100 100 Oximetry 07/20/21 07/20/21 07/20/21 17:00 18:00 18:18 Temperature 97.8 F Pulse Rate 109 H 106 H Respiratory 17 22 Rate Blood Pressure 128/83 107/59 O2 Sat by Pulse 100 99 Oximetry 07/20/21 07/20/21 19:00 19:25 Temperature Pulse Rate 88 84 Respiratory 22 Rate Blood Pressure 107/55 101/56 O2 Sat by Pulse 99 99 Oximetry General appearance: Present: no acute distress, well-nourished - EENT Eyes: PERRL, EOM intact ENT: hearing intact, clear oral mucosa Ears: bilateral: normal - Neck Neck: supple, normal ROM - Respiratory Respiratory effort: normal Respiratory: bilateral: CTA - Breasts Breasts: normal - Cardiovascular Rhythm: regular Heart Sounds: Present: S1 & S2. Absent: gallop, rub Extremities: pulses intact, No edema, normal color, Full ROM - Gastrointestinal General gastrointestinal: Present: soft, non-tender, non-distended, normal bowel sounds - Genitourinary Male genitourinary: normal - Integumentary Integumentary: clear, warm, dry - Musculoskeletal Musculoskeletal: 1, strength equal bilaterally - Neurologic Neurologic: moves all extremities - Psychiatric Psychiatric: memory intact, appropriate mood/affect, intact judgment & insight - Labs CBC & Chem 7: 07/20/21 05:48 07/20/21 05:48 Labs: Abnormal lab results 07/20/21 07/20/21 07/20/21 Range/Units 04:12 05:48 05:48 WBC 21.0 H (4.5-11.0) K/mm3 Hct 45.9 H (35.5-45.6) % Seg Neuts % (Manual) 91.0 H (40.0-70.0) % Lymphocytes % (Manual) 6.5 L (13.4-35.0) % Seg Neutrophils # Man 19.1 H (1.8-7.7) K/mm3 ABG pO2 227.3 H (80.0-90.0) mm Hg ABG HCO3 17.6 L (20.0-26.0) mmol/L ABG O2 Saturation 99.4 H (95.0-99.0) % ABG Base Excess -6.3 L (-2.0-3.0) mmol/L Potassium 3.5 L (3.6-5.0) mmol/L Chloride 115.2 H (98-107) mmol/L Carbon Dioxide 15 L (22-30) mmol/L BUN 23 H (9-20) mg/dL Creatinine 2.5 H D (0.8-1.3) mg/dL Albumin 3.6 L (3.9-5) g/dL
[2021-07-20] MEDS: MIDAZOLAM 100 MG in SODIUM CHLORIDE 0.9% 80 ML IV ONE (21:49)
[2021-07-21] MEDS ORDERED: LORazepam 2 MG/ML VIAL IV PRN ×2 (00:06→00:10)
[2021-07-21 03:01] LABS: ABG Base Excess -7.1 mmol/L (-2.0-3.0); ABG HCO3 15.3 mmol/L (20.0-26.0); ABG Methemoglobin 0.8 % (0.0-1.5); ABG Oxygen Saturation 99.2 % (95.0-99.0); ABG PCO2 24.4 mm Hg; ABG PH 7.415 pH Units (7.350-7.450); ABG PO2 181.6 mm Hg (80.0-90.0)
[2021-07-21] MEDS ORDERED: SODIUM CHLORIDE 0.9% 50 ML IVPB IV PRN (09:17)
--- NOTE | 2021-07-21 09:19 | Consultation ---
History of Present Illness Consult date: 07/21/21 Reason for Consult: Recurrent seizure , poor compliance, Hx of TBI History of present illness: Continued seizures since a.m. History of present illness: 25-year-old male with history of traumatic brain injury and seizure disorder noncompliant with medications, brought in by EMS for multiple seizures. Patient is very noncompliant. EMS was called by the patient's mother and report the patient had bacterial [id number] seizures lasting approximately 32seconds to 1 minute. Patient had 2 more seizures in front of the EMS and 3 seizures while in the ambulance. Patient was given 4 mg of ativan And was brought to the emergency room. In the emergency room because of recurrent seizures patient was intubated for p rotection of airway. 26-year-old male with history of TBI and seizure disorder noncompliant with med ications brought in by EMS after having multiple seizures. It is unknown what seizure medication the patient is supposed to be taking. According to the EMS report, they were called out to the patient's home by the patient's mother who reported that the patient had 3 [id number] seizures lasting approximately 30 seconds. The patient had 2 more seizures in front of the EMS crew and then 3 seizures while in the ambulance in route. He was given 4 mg of IV Ativan which resolved one of the seizures but then shortly thereafter he began with tonic- clonic seizure activity after that. He never regained consciousness between the seizures. His fingerstick blood glucose was 140, blood pressure 130/67, heart rate of 90, and saturation of 99% on room air. Further details of the HPI are thus limited due to the patient's current clinical condition. today he is extubated no reported seizure , he is lathergic not follow command , no witnessed seizure MRI brain is pending as well as EEG he is started on Keppra 1000 mg bid -Initial WBC 27.8K-- 21K BUN/Cr#23/2.3 Review of Systems ROS: Constitutional no weight loss or weight gain no fever or chills HEENT no sore throat no post nasal drip no diplopia Neck no neck stiffness no lymph gland enlargement Chest and lungs no shortness of breath cough or wheezing CVS no chest pain no diaphoresis no palpitations GI no nausea no vomiting no diarrhea Genitourinary system no dysuria no flank pain Musculoskeletal system no muscle pains no joint pains BRAND LEAD no syncope no seizures Skin no rash no itching Psychiatric no depression no homicidal or suicidal tendencies Hematologic no lymphedema or bruising Endocrine no polydipsia no polyuria no cold intolerance no heat intolerance Past History Past Medical History: seizures, other (Traumatic brain injury) Past Surgical History: Other Social history: lives with family Family history: hypertension Medications and Allergies Allergies Allergy/AdvReac Type Severity Reaction Status Date / Time Unable to Assess Allergy Verified 07/19/21 13:14 Active Meds: Active Medications Acetaminophen (Acetaminophen 650 Mg Rect Supp) 650 mg PA Q4H PRN PRN Reason: Fever >101 Enoxaparin Sodium (Enoxaparin 40 Mg/0.4 Ml Inj) 40 mg SUB-Q QDAY@1000 CASSANDRA Propofol (Diprivan 10 Mg/Ml) 1,000 mg in 100 mls @ 1.837 mls/hr IV TITR CASSANDRA; Protocol Last Admin: 07/20/21 03:50 Dose: 122.48 mcg/kg/min, 45 mls/hr Midazolam HCl 100 mg/ Sodium (Chloride) 100 mls @ 1 mls/hr IV TITR ONE; Protocol Stop: 07/23/21 19:57 Last Admin: 07/19/21 16:36 Dose: 1 mg/hr, 1 mls/hr Sodium Chloride (Nacl 0.9% 1000 Ml) 1,000 mls @ 100 mls/hr IV DIRECT CASSANDRA Levetiracetam 1,000 mg/ (Dextrose) 110 mls @ 400 mls/hr IV Q12HR CASSANDRA Last Admin: 07/19/21 22:10 Dose: 400 mls/hr Morphine Sulfate (Morphine 2 Mg/1 Ml Inj) 2 mg IV Q4H PRN PRN Reason: Pain, Moderate (4-6) Ondansetron HCl (Ondansetron 4 Mg/2 Ml Inj) 4 mg IV Q8H PRN PRN Reason: Nausea And Vomiting Sodium Chloride (Sodium Chloride 0.9% 10 Ml Flush Syringe) 10 ml IV BID CASSANDRA Last Admin: 07/19/21 22:10 Dose: 10 ml Sodium Chloride (Sodium Chloride 0.9% 10 Ml Flush Syringe) 10 ml IV PRN PRN PRN Reason: LINE FLUSH Past History Past Medical History: seizures, other (Traumatic brain injury) Past Surgical History: Other Social history: lives with family Family history: hypertension Medications and Allergies Allergies Allergy/AdvReac Type Severity Reaction Status Date / Time Unable to Assess Allergy Verified 07/19/21 13:14 Active Meds: Active Medications Acetaminophen (Acetaminophen 650 Mg Rect Supp) 650 mg PA Q4H PRN PRN Reason: Fever >101 Enoxaparin Sodium (Enoxaparin 30 Mg/0.3 Ml Inj) 30 mg SUB-Q QDAY CASSANDRA Famotidine (Famotidine 20 Mg/2 Ml Inj) 10 mg IV BID CASSANDRA Propofol (Diprivan 10 Mg/Ml) 1,000 mg in 100 mls @ 1.837 mls/hr IV TITR CASSANDRA; Protocol Last Titration: 07/21/21 08:20 Dose: 0 mcg/kg/min, 0 mls/hr Midazolam HCl 100 mg/ Sodium (Chloride) 100 mls @ 1 mls/hr IV TITR ONE; Protocol Stop: 07/23/21 19:57 Last Titration: 07/21/21 08:20 Dose: 0 mg/hr, 0 mls/hr Sodium Chloride (Nacl 0.9% 1000 Ml) 1,000 mls @ 100 mls/hr IV DIRECT CASSANDRA Levetiracetam 1,000 mg/ (Dextrose) 110 mls @ 400 mls/hr IV Q12HR CASSANDRA Last Admin: 07/20/21 22:18 Dose: 400 mls/hr Lorazepam (Lorazepam 2 Mg/Ml Vial) 2 mg IV Q4H PRN PRN Reason: seizures Morphine Sulfate (Morphine 2 Mg/1 Ml Inj) 2 mg IV Q4H PRN PRN Reason: Pain, Moderate (4-6) Ondansetron HCl (Ondansetron 4 Mg/2 Ml Inj) 4 mg IV Q8H PRN PRN Reason: Nausea And Vomiting Sodium Chloride (Sodium Chloride 0.9% 10 Ml Flush Syringe) 10 ml IV BID CASSANDRA Last Admin: 07/20/21 22:18 Dose: 10 ml Sodium Chloride (Sodium Chloride 0.9% 10 Ml Flush Syringe) 10 ml IV PRN PRN PRN Reason: LINE FLUSH Sodium Chloride (Sodium Chloride 0.9% 50 Ml Ivpb) 10 ml IV PRN PRN PRN Reason: FLUSH Physical Examination - Vital Signs Vital Signs: Vital Signs Resp Pulse Ox 32 H 98 07/19/21 13:03 07/19/21 13:03 - Constitutional General appearance: comfortable - EENT EENT: Present: PERRL, mucous membranes moist - Respiratory Respiratory: Present: lungs clear, rhonchi - Cardiovascular Cardiovascular: Present: regular rate, normal S1, normal S2 Extremities: Present: no peripheral edema bilatateraly, no clubbing, cyanosis - Gastrointestinal Gastrointestinal: Present: normoactive bowel sounds - Integumentary Integumentary: Present: normal - Neurologic Cranial nerve examination: PERRL, EOMI, intact Speech examination: other (not responding to command) Detailed motor examination: other (slight withdrawal , planter is down ,) Results - Laboratory Findings CBC and BMP: 07/21/21 10:20 07/21/21 10:20 Abnormal Lab Findings: Abnormal Labs 07/19/21 07/19/21 07/19/21 14:21 14:21 14:21 WBC 27.8 H RBC 5.28 H Hgb 16.2 H Hct 49.5 H Seg Neuts % (Manual) 90.0 H Lymphocytes % (Manual) 5.0 L Seg Neutrophils # Man 25.0 H Eosinophils # (Manual) 0.6 H PT 15.3 H ABG pH ABG pO2 ABG HCO3 ABG O2 Saturation ABG Base Excess Oxyhemoglobin Potassium 3.4 L Chloride 107.5 H Carbon Dioxide 15 L BUN Creatinine 1.4 H Glucose 108 H Lactic Acid Magnesium 2.80 H AST 44 H Ammonia Albumin Salicylates Acetaminophen 07/19/21 07/19/21 07/19/21 14:21 14:21 14:21 WBC RBC Hgb Hct Seg Neuts % (Manual) Lymphocytes % (Manual) Seg Neutrophils # Man Eosinophils # (Manual) PT ABG pH ABG pO2 ABG HCO3 ABG O2 Saturation ABG Base Excess Oxyhemoglobin Potassium Chloride Carbon Dioxide BUN Creatinine Glucose Lactic Acid Magnesium AST Ammonia 94.0 H Albumin Salicylates < 0.3 L Acetaminophen 5.0 L 07/19/21 07/19/21 07/20/21 14:45 15:59 04:12 WBC RBC Hgb Hct Seg Neuts % (Manual) Lymphocytes % (Manual) Seg Neutrophils # Man Eosinophils # (Manual) PT ABG pH 7.174 L* ABG pO2 104.0 H 227.3 H ABG HCO3 17.2 L 17.6 L ABG O2 Saturation 99.4 H ABG Base Excess -11.3 L -6.3 L Oxyhemoglobin 94.1 L Potassium Chloride Carbon Dioxide BUN Creatinine Glucose Lactic Acid 3.50 H* Magnesium AST Ammonia Albumin Salicylates Acetaminophen 07/20/21 07/20/21 07/21/21 05:48 05:48 02:45 WBC 21.0 H RBC Hgb Hct 45.9 H Seg Neuts % (Manual) 91.0 H Lymphocytes % (Manual) 6.5 L Seg Neutrophils # Man 19.1 H Eosinophils # (Manual) PT ABG pH ABG pO2 181.6 H ABG HCO3 15.3 L ABG O2 Saturation 99.2 H ABG Base Excess -7.1 L Oxyhemoglobin Potassium 3.5 L Chloride 115.2 H Carbon Dioxide 15 L BUN 23 H Creatinine 2.5 H D Glucose Lactic Acid Magnesium AST Ammonia Albumin 3.6 L Salicylates Acetaminophen Assessment and Plan Assessment and Plan 25-year-old male with history of traumatic brain injury and seizure disorder noncompliant with medications, brought in by EMS for multiple seizures. Patient is very noncompliant. EMS was called by the patient's mother and report the patient had bacterial [id number] seizures lasting approximately 32seconds to 1 minute. Patient had 2 more seizures in front of the EMS and 3 seizures while in the ambulance. Patient was given 4 mg of area And was brought to the emergency room. In the emergency room because of recurrent seizures patient was intubated for protection of airway. 26-year-old male with history of TBI and seizure disorder noncompliant with medications brought in by EMS after having multiple seizures. It is unknown what seizure medication the patient is supposed to be taking. According to the EMS report, they were called out to the patient's home by the patient's mother who reported that the patient had 3 [id number] seizures lasting approximately 30 seconds. The patient had 2 more seizures in front of the EMS crew and then 3 seizures while in the ambulance in route. He was given 4 mg of IV Ativan which resolved one of the seizures but then shortly thereafter he began with tonic- clonic seizure activity after that. He never regained consciousness between the seizures. His fingerstick blood glucose was 140, blood pressure 130/67, heart rate of 90, and saturation of 99% on room air. Further details of the HPI are thus limited due to the patient's current clinical condition. - Patient Problems #Recurrent seizure on admissionwith possible Status epilepticus -Admited for evaluation -Intubated initally --currently extubated -started on Keppra 1000 mg Bid -no witnessed seizure in ICU -lethargic post extubation -CT brain is remarkable for remote right front encephalomalacia -MRI brain is pending -EEG is pending -he is off sedation -seizure precaution -hx of poor compliance with medications -Hx of traumatic brain injury # Acute encephalopathy - related to medications -post ictal -EEG ordered for today # Acute respiratory failure with hypoxia -Patient initially intubated for protection of airway and hypoxia -Assemblyman Or Woman consult requested # Dehydration - Initial BUN/Cr#23/2.3 -IV fluids for now # Leukocytosis -Possible demargination -Meningitis unlikely -IV Rocephin empirically # Hypokalemia -supplemented # Acute kidney injury -IV fluids for now # DVT prophylaxis -On heparin and GI prophylaxis Critical care statement The high probability of a clinically significant sudden or life-threatening deterioration of the cardiorespiratory system and endocrine system required my full and direct attention, intervention and postoperative management. The aggregate critical care time was 40 minutes. The time is in addition to time spent performing reported procedures but includes the followin: Data review and interpretation 2: Patient assessment and monitoring of vital signs 3: Documentation 4:: Medication orders and management
[2021-07-21] MEDS ORDERED: ENOXAPARIN 30 MG/0.3 ML INJ SUB-Q SCH (10:00)
--- NOTE | 2021-07-21 10:00 | Progress Note ---
Assessment and Plan 26 y/o male with prior history of seizures and TBI admitted with status epilietpicus and per report, required intubation for airway protection. 1. Extubated today 2. Seizure control per Neurology 3. Swallow eval if mental state will allow, if not will need to continue medications IV 4. Follow up any new Neurology recs. CCT 31 minutes. Subjective Date of service: 07/21/21 Interval history: Extubated this am. Still somewhat sleepy but eyes open. Tachy but sinus. Elevated BP. Objective Vital Signs - 12hr 07/20/21 07/20/21 07/20/21 22:00 23:00 23:12 Temperature Pulse Rate 79 79 83 Pulse Rate [ From Monitor] Respiratory 22 Rate Blood Pressure 103/62 115/72 115/72 O2 Sat by Pulse 100 100 100 Oximetry 07/20/21 07/21/21 07/21/21 23:58 00:00 00:05 Temperature 98.9 F Pulse Rate 112 H 117 H Pulse Rate [ From Monitor] Respiratory 14 Rate Blood Pressure 134/82 135/76 O2 Sat by Pulse 100 100 Oximetry 07/21/21 07/21/21 07/21/21 00:20 00:51 00:53 Temperature 98.6 F Pulse Rate 101 H 102 H Pulse Rate [ From Monitor] Respiratory 22 Rate Blood Pressure 125/74 O2 Sat by Pulse 100 Oximetry 07/21/21 07/21/21 07/21/21 01:00 01:10 01:20 Temperature Pulse Rate 96 H 89 88 Pulse Rate [ From Monitor] Respiratory Rate Blood Pressure 115/68 115/68 111/64 O2 Sat by Pulse 100 100 100 Oximetry 07/21/21 07/21/21 07/21/21 01:22 01:30 01:40 Temperature Pulse Rate 84 83 Pulse Rate [ 87 From Monitor] Respiratory Rate Blood Pressure 106/56 106/56 O2 Sat by Pulse 100 100 100 Oximetry 07/21/21 07/21/21 07/21/21 01:50 02:00 02:10 Temperature Pulse Rate 80 76 76 Pulse Rate [ From Monitor] Respiratory 22 Rate Blood Pressure 100/57 105/56 105/56 O2 Sat by Pulse 100 100 100 Oximetry 07/21/21 07/21/21 07/21/21 02:20 02:30 02:40 Temperature Pulse Rate 74 70 69 Pulse Rate [ From Monitor] Respiratory 22 Rate Blood Pressure 105/57 106/61 106/61 O2 Sat by Pulse 100 100 100 Oximetry 07/21/21 07/21/21 07/21/21 02:50 03:00 03:10 Temperature Pulse Rate 71 72 91 H Pulse Rate [ From Monitor] Respiratory 22 22 19 Rate Blood Pressure 122/75 125/77 125/77 O2 Sat by Pulse 100 100 100 Oximetry 07/21/21 07/21/21 07/21/21 03:20 03:24 03:30 Temperature 98.4 F Pulse Rate 94 H 99 H Pulse Rate [ From Monitor] Respiratory 18 14 Rate Blood Pressure 135/74 136/74 O2 Sat by Pulse 100 100 Oximetry 07/21/21 07/21/21 07/21/21 03:32 03:40 03:50 Temperature Pulse Rate 72 108 H 115 H Pulse Rate [ From Monitor] Respiratory 21 21 Rate Blood Pressure 106/61 136/74 141/84 O2 Sat by Pulse 100 100 100 Oximetry 07/21/21 07/21/21 07/21/21 04:00 04:10 04:20 Temperature Pulse Rate 105 H 98 H 96 H Pulse Rate [ 87 From Monitor] Respiratory 22 Rate Blood Pressure 136/72 136/72 124/77 O2 Sat by Pulse 100 100 100 Oximetry 07/21/21 07/21/21 07/21/21 04:30 04:40 04:50 Temperature Pulse Rate 93 H 92 H 93 H Pulse Rate [ From Monitor] Respiratory 18 18 18 Rate Blood Pressure 119/66 119/66 109/64 O2 Sat by Pulse 100 100 100 Oximetry 07/21/21 07/21/21 07/21/21 05:00 05:10 05:20 Temperature Pulse Rate 88 87 86 Pulse Rate [ From Monitor] Respiratory 18 18 18 Rate Blood Pressure 115/65 115/65 109/62 O2 Sat by Pulse 100 100 100 Oximetry 07/21/21 07/21/21 07/21/21 05:30 05:40 05:50 Temperature Pulse Rate 82 84 85 Pulse Rate [ From Monitor] Respiratory 18 18 18 Rate Blood Pressure 111/64 111/64 112/64 O2 Sat by Pulse 100 100 100 Oximetry 07/21/21 07/21/21 07/21/21 06:00 06:10 06:20 Temperature Pulse Rate 82 83 79 Pulse Rate [ From Monitor] Respiratory 18 18 18 Rate Blood Pressure 111/65 111/65 111/62 O2 Sat by Pulse 100 100 100 Oximetry 07/21/21 07/21/21 07/21/21 06:30 06:40 06:50 Temperature Pulse Rate 81 80 79 Pulse Rate [ From Monitor] Respiratory 18 18 18 Rate Blood Pressure 101/57 101/57 103/55 O2 Sat by Pulse 100 99 99 Oximetry 07/21/21 07/21/21 07/21/21 07:00 07:10 07:20 Temperature Pulse Rate 75 76 75 Pulse Rate [ From Monitor] Respiratory 18 18 18 Rate Blood Pressure 103/57 103/57 104/55 O2 Sat by Pulse 100 100 99 Oximetry 07/21/21 07/21/21 07/21/21 07:30 07:40 07:50 Temperature Pulse Rate 71 71 70 Pulse Rate [ From Monitor] Respiratory 18 18 18 Rate Blood Pressure 114/67 114/67 109/63 O2 Sat by Pulse 100 100 100 Oximetry 07/21/21 07/21/21 07/21/21 08:00 08:11 08:21 Temperature Pulse Rate 69 67 65 Pulse Rate [ 87 From Monitor] Respiratory 18 18 18 Rate Blood Pressure 105/61 105/61 109/67 O2 Sat by Pulse 100 100 100 Oximetry 07/21/21 07/21/21 07/21/21 08:31 08:38 08:41 Temperature Pulse Rate 102 H 119 H 120 H Pulse Rate [ From Monitor] Respiratory 21 19 Rate Blood Pressure 146/76 146/76 146/76 O2 Sat by Pulse 100 100 100 Oximetry 07/21/21 07/21/21 07/21/21 08:50 09:51 09:54 Temperature Pulse Rate 123 H 126 H Pulse Rate [ From Monitor] Respiratory 24 Rate Blood Pressure 165/95 154/89 O2 Sat by Pulse 100 100 100 Oximetry CBC and BMP: 07/20/21 05:48 07/20/21 05:48 ABG, PT/INR, D-dimer: ABG ABG pH 7.415 pH Units (7.350-7.450) 07/21/21 02:45 ABG pCO2 24.4 mm Hg 07/21/21 02:45 ABG pO2 181.6 mm Hg (80.0-90.0) H 07/21/21 02:45 ABG O2 Saturation 99.2 % (95.0-99.0) H 07/21/21 02:45 PT/INR, D-dimer PT 15.3 Sec. (12.2-14.9) H 07/19/21 14:21 INR 1.09 (0.87-1.13) 07/19/21 14:21 Abnormal lab findings: Abnormal Labs 07/19/21 07/19/21 07/19/21 14:21 14:21 14:21 WBC 27.8 H RBC 5.28 H Hgb 16.2 H Hct 49.5 H Seg Neuts % (Manual) 90.0 H Lymphocytes % (Manual) 5.0 L Seg Neutrophils # Man 25.0 H Eosinophils # (Manual) 0.6 H PT 15.3 H ABG pH ABG pO2 ABG HCO3 ABG O2 Saturation ABG Base Excess Oxyhemoglobin Potassium 3.4 L Chloride 107.5 H Carbon Dioxide 15 L BUN Creatinine 1.4 H Glucose 108 H Lactic Acid Magnesium 2.80 H AST 44 H Ammonia Albumin Salicylates Acetaminophen 07/19/21 07/19/21 07/19/21 14:21 14:21 14:21 WBC RBC Hgb Hct Seg Neuts % (Manual) Lymphocytes % (Manual) Seg Neutrophils # Man Eosinophils # (Manual) PT ABG pH ABG pO2 ABG HCO3 ABG O2 Saturation ABG Base Excess Oxyhemoglobin Potassium Chloride Carbon Dioxide BUN Creatinine Glucose Lactic Acid Magnesium AST Ammonia 94.0 H Albumin Salicylates < 0.3 L Acetaminophen 5.0 L 07/19/21 07/19/21 07/20/21 14:45 15:59 04:12 WBC RBC Hgb Hct Seg Neuts % (Manual) Lymphocytes % (Manual) Seg Neutrophils # Man Eosinophils # (Manual) PT ABG pH 7.174 L* ABG pO2 104.0 H 227.3 H ABG HCO3 17.2 L 17.6 L ABG O2 Saturation 99.4 H ABG Base Excess -11.3 L -6.3 L Oxyhemoglobin 94.1 L Potassium Chloride Carbon Dioxide BUN Creatinine Glucose Lactic Acid 3.50 H* Magnesium AST Ammonia Albumin Salicylates Acetaminophen 07/20/21 07/20/21 07/21/21 05:48 05:48 02:45 WBC 21.0 H RBC Hgb Hct 45.9 H Seg Neuts % (Manual) 91.0 H Lymphocytes % (Manual) 6.5 L Seg Neutrophils # Man 19.1 H Eosinophils # (Manual) PT ABG pH ABG pO2 181.6 H ABG HCO3 15.3 L ABG O2 Saturation 99.2 H ABG Base Excess -7.1 L Oxyhemoglobin Potassium 3.5 L Chloride 115.2 H Carbon Dioxide 15 L BUN 23 H Creatinine 2.5 H D Glucose Lactic Acid Magnesium AST Ammonia Albumin 3.6 L Salicylates Acetaminophen
--- NOTE | 2021-07-21 10:32 | Progress Note ---
Assessment and Plan Assessment and plan: This is a 25-year-old male with past medical history of TBI and seizure disorder admitted for multiple seizures and was intutabed in the ED for airway protection Hospital Course to Date: 07/21: Patient is s/p extubation, on 2L NC SPO2 at 100%. Still drowsy most likely from sedation, however easily arousable with mild stimuli. No report of any seizure activity overnight, EEG and MRI pending. Neurology is on consult. Patient also with worsen kidney function, Nephrology consulted. D/W CCM patient is stable for transfer to the floor this afternoon. Assessment and Plan #Acute respiratory failure with hypoxia - Intubated in the ED on 07/19 for airway protection - 07/21 s/p extubation - Now on 2L NC SPO2 at 100% - AM ABG noted - [facility] consulted, appreciate recommendations - Aspiration precaution HOB above 30 - Continue O2 supplementation and wean as tolerated - Continue SPO2 monitoring for SPO2 goal above 95% #Acute Encephalopathy 2/2 #Status epilepticus - Patient has a known history of seizure disorders, noncompliant with meds - remains drowsy post sedation - CT head noted - Neurology on consult, appreciate recommendations - Continue Keppra - EEG and MRI pending - Continue seizure precaution - PRN Ativan for seizure activities #Acute Kidney Injury(ELGIN) Prerenal vs ATN #Hypernatremia #Dehydration - Probably due to dehydration, baseline is unknown - Renal function worsen this am, Scr. as high as 4.1 - Nephrology Consulted - High Na, NS switched to D5W - Strict intake and output - Emanuel in place, 1.5L UOP in last 24hrs - Avoid nephrotoxic medications; Renally dose medications - Monitor and replace electrolytes as needed - Trend BMP #Leukocytosis #Lactic Acidosis-resolved - Probably reactive from seizures - COVID PCR neg - Blood culture with NGTD - UA is negative - patient remains afebrile - Will D/C emperic IV Abx for now - Continue to F/u on culture data -Trend CBC #GI/DVT prophylaxis - Continue PPI- pepcid - Lovenox switched to Heparin SubQ due to worsening kidney function The high probability of a clinically significant, sudden or life threatening deterioration of the [multiple] system(s) required my full and direct attention, intervention and personal management. The aggregate critical care time was [60] minutes. This time is in addition to time spent performing reported procedures but includes the following: [x] Data Review and interpretation [x] Patient assessment and monitoring of vital signs [x] Documentation [x] Medication orders and management Disposition Plan: ICU Total Time Spent with Patient (Minutes): 60 History Interval history: Patient seen and examined at the bedside. S/p extubation, now on 2L NC SPO2 at 100%. Patient is drowsy but arousable with mild stimuli. No report of any seizure activities overnight Hospitalist Physical - Constitutional Vitals: Temp Pulse Resp BP Pulse Ox 98.4 F 126 H 24 154/89 100 07/21/21 03:24 07/21/21 09:51 07/21/21 08:50 07/21/21 09:51 07/21/21 09:54 General appearance: Present: no acute distress, well-nourished - EENT Eyes: Present: PERRL ENT: hearing intact - Neck Neck: Present: normal ROM - Respiratory Respiratory effort: normal Respiratory: bilateral: diminished - Cardiovascular Rhythm: regular Heart Sounds: Present: S1 & S2 - Extremities Extremities: no ischemia, pulses intact, pulses symmetrical, No edema Peripheral Pulses: within normal limits - Abdominal General gastrointestinal: soft, non-distended, normal bowel sounds - Integumentary Integumentary: Present: warm, dry - Psychiatric Psychiatric: cooperative, other (Drowsy) Results - Labs CBC & Chem 7: 07/21/21 10:20 07/21/21 10:20 Labs: Laboratory Last Values WBC 21.0 K/mm3 (4.5-11.0) H 07/20/21 05:48 RBC 4.96 M/mm3 (3.65-5.03) 07/20/21 05:48 Hgb 15.0 gm/dl (11.8-15.2) 07/20/21 05:48 Hct 45.9 % (35.5-45.6) H 07/20/21 05:48 MCV 92 fl (84-94) 07/20/21 05:48 MCH 30 pg (28-32) 07/20/21 05:48 MCHC 33 % (32-34) 07/20/21 05:48 RDW 13.3 % (13.2-15.2) 07/20/21 05:48 Plt Count 183 K/mm3 (140-440) 07/20/21 05:48 Lymph % (Auto) Medical Technologist Chief 07/20/21 05:48 [place]shaw % (Auto) Medical Technologist Chief 07/20/21 05:48 Eos % (Auto) Medical Technologist Chief 07/20/21 05:48 Baso % (Auto) Medical Technologist Chief 07/20/21 05:48 Lymph # (Auto) Medical Technologist Chief 07/20/21 05:48 Crenshaw # (Auto) Medical Technologist Chief 07/20/21 05:48 Eos # (Auto) Medical Technologist Chief 07/20/21 05:48 Baso # (Auto) Medical Technologist Chief 07/20/21 05:48 Add Manual Diff Complete 07/20/21 05:48 Total Counted 200 07/20/21 05:48 Seg Neutrophils % Medical Technologist Chief 07/20/21 05:48 Seg Neuts % (Manual) 91.0 % (40.0-70.0) H 07/20/21 05:48 Band Neutrophils % 0.5 % 07/20/21 05:48 Lymphocytes % (Manual) 6.5 % (13.4-35.0) L 07/20/21 05:48 Reactive Lymphs % (Man) 0 % 07/20/21 05:48 Monocytes % (Manual) 2.0 % (0.0-7.3) 07/20/21 05:48 Eosinophils % (Manual) 0 % (0.0-4.3) 07/20/21 05:48 Basophils % (Manual) 0 % (0.0-1.8) 07/20/21 05:48 Metamyelocytes % 0 % 07/20/21 05:48 Myelocytes % 0 % 07/20/21 05:48 Promyelocytes % 0 % 07/20/21 05:48 Blast Cells % 0 % 07/20/21 05:48 Nucleated RBC % Not Reportable 07/20/21 05:48 Seg Neutrophils # Medical Technologist Chief 07/20/21 05:48 Seg Neutrophils # Man 19.1 K/mm3 (1.8-7.7) H 07/20/21 05:48 Band Neutrophils # 0.1 K/mm3 07/20/21 05:48 Lymphocytes # (Manual) 1.4 K/mm3 (1.2-5.4) 07/20/21 05:48 Abs React Lymphs (Man) 0.0 K/mm3 07/20/21 05:48 Monocytes # (Manual) 0.4 K/mm3 (0.0-0.8) 07/20/21 05:48 Eosinophils # (Manual) 0.0 K/mm3 (0.0-0.4) 07/20/21 05:48 Basophils # (Manual) 0.0 K/mm3 (0.0-0.1) 07/20/21 05:48 Metamyelocytes # 0.0 K/mm3 07/20/21 05:48 Myelocytes # 0.0 K/mm3 07/20/21 05:48 Promyelocytes # 0.0 K/mm3 07/20/21 05:48 Blast Cells # 0.0 K/mm3 07/20/21 05:48 WBC Morphology Not Reportable 07/20/21 05:48 Hypersegmented Neuts Not Reportable 07/20/21 05:48 Hyposegmented Neuts Not Reportable 07/20/21 05:48 Hypogranular Neuts Not Reportable 07/20/21 05:48 Smudge Cells Not Reportable 07/20/21 05:48 Toxic Granulation Not Reportable 07/20/21 05:48 Toxic Vacuolation Not Reportable 07/20/21 05:48 Dohle Bodies Not Reportable 07/20/21 05:48 Pelger-Huet Anomaly Not Reportable 07/20/21 05:48 Yvon Rods Not Reportable 07/20/21 05:48 Platelet Estimate Consistent w auto 07/20/21 05:48 Clumped Platelets Not Reportable 07/20/21 05:48 Plt Clumps, EDTA Not Reportable 07/20/21 05:48 Large Platelets Not Reportable 07/20/21 05:48 Giant Platelets Not Reportable 07/20/21 05:48 Platelet Satelliting Not Reportable 07/20/21 05:48 Plt Morphology Comment Not Reportable 07/20/21 05:48 RBC Morphology Not Reportable 07/20/21 05:48 Dimorphic RBCs Not Reportable 07/20/21 05:48 Polychromasia Not Reportable 07/20/21 05:48 Hypochromasia Not Reportable 07/20/21 05:48 Poikilocytosis Not Reportable 07/20/21 05:48 Anisocytosis 1+ 07/20/21 05:48 Microcytosis Not Reportable 07/20/21 05:48 Macrocytosis Not Reportable 07/20/21 05:48 Spherocytes Not Reportable 07/20/21 05:48 Pappenheimer Bodies Not Reportable 07/20/21 05:48 Sickle Cells Not Reportable 07/20/21 05:48 Target Cells Not Reportable 07/20/21 05:48 Tear Drop Cells Not Reportable 07/20/21 05:48 Ovalocytes Not Reportable 07/20/21 05:48 Helmet Cells Not Reportable 07/20/21 05:48 Benav[place] Bodies Not Reportable 07/20/21 05:48 [place] Rings Not Reportable 07/20/21 05:48 Unique Cells Not Reportable 07/20/21 05:48 Bite Cells Not Reportable 07/20/21 05:48 Crenated Cell Not Reportable 07/20/21 05:48 Elliptocytes Not Reportable 07/20/21 05:48 Acanthocytes (Spur) Not Reportable 07/20/21 05:48 Rouleaux Not Reportable 07/20/21 05:48 Hemoglobin C Crystals Not Reportable 07/20/21 05:48 Schistocytes Not Reportable 07/20/21 05:48 Malaria parasites Not Reportable 07/20/21 05:48 Heath Bodies Not Reportable 07/20/21 05:48 Hem Pathologist Commnt No 07/20/21 05:48 PT 15.3 Sec. (12.2-14.9) H 07/19/21 14:21 INR 1.09 (0.87-1.13) 07/19/21 14:21 APTT 25.8 Sec. (24.2-36.6) 07/19/21 14:21 ABG pH 7.415 pH Units (7.350-7.450) 07/21/21 02:45 ABG pCO2 24.4 mm Hg 07/21/21 02:45 ABG pO2 181.6 mm Hg (80.0-90.0) H 07/21/21 02:45 ABG HCO3 15.3 mmol/L (20.0-26.0) L 07/21/21 02:45 ABG O2 Saturation 99.2 % (95.0-99.0) H 07/21/21 02:45 ABG O2 Content 21.2 (0.0-44) 07/21/21 02:45 ABG Base Excess -7.1 mmol/L (-2.0-3.0) L 07/21/21 02:45 ABG Hemoglobin 15.3 gm/dl (14.0-18.0) 07/21/21 02:45 ABG Carboxyhemoglobin 0.9 % (0.0-5.0) 07/21/21 02:45 ABG Methemoglobin 0.8 % (0.0-1.5) 07/21/21 02:45 Oxyhemoglobin 97.5 % (95.0-99.0) 07/21/21 02:45 FiO2 35 % 07/21/21 02:45 Sodium 143 mmol/L (137-145) 07/20/21 05:48 Potassium 3.5 mmol/L (3.6-5.0) L 07/20/21 05:48 Chloride 115.2 mmol/L (98-107) H 07/20/21 05:48 Carbon Dioxide 15 mmol/L (22-30) L 07/20/21 05:48 Anion Gap 16 mmol/L 07/20/21 05:48 BUN 23 mg/dL (9-20) H 07/20/21 05:48 Creatinine 2.5 mg/dL (0.8-1.3) H D 07/20/21 05:48 Estimated GFR 38 ml/min 07/20/21 05:48 BUN/Creatinine Ratio 9 % 07/20/21 05:48 Glucose 90 mg/dL (75-100) 07/20/21 05:48 Lactic Acid 1.20 mmol/L (0.7-2.0) 07/20/21 09:37 Calcium 8.5 mg/dL (8.4-10.2) 07/20/21 05:48 Magnesium 2.80 mg/dL (1.7-2.3) H 07/19/21 14:21 Total Bilirubin 0.80 mg/dL (0.1-1.2) 07/20/21 05:48 Direct Bilirubin < 0.2 mg/dL (0-0.2) 07/19/21 14:21 Indirect Bilirubin 0.0 mg/dL 07/19/21 14:21 AST 30 units/L (5-40) 07/20/21 05:48 ALT 18 units/L (7-56) 07/20/21 05:48 Alkaline Phosphatase 63 units/L (35-129) 07/20/21 05:48 Ammonia 94.0 umol/L (25-60) H 07/19/21 14:21 Total Protein 6.4 g/dL (6.3-8.2) 07/20/21 05:48 Albumin 3.6 g/dL (3.9-5) L 07/20/21 05:48 Albumin/Globulin Ratio 1.3 % 07/20/21 05:48 Urine Color Straw (Yellow) 07/19/21 14:30 Urine Turbidity Clear (Clear) 07/19/21 14:30 Urine pH 5.0 (5.0-7.0) 07/19/21 14:30 Ur Specific [place] 1.011 (1.003-1.030) 07/19/21 14:30 Urine Protein 30 mg/dl mg/dL (Negative) 07/19/21 14:30 Urine Glucose (UA) Neg mg/dL (Negative) 07/19/21 14:30 Urine Ketones Neg mg/dL (Negative) 07/19/21 14:30 Urine Blood Sm (Negative) 07/19/21 14:30 Urine Nitrite Neg (Negative) 07/19/21 14:30 Urine Bilirubin Neg (Negative) 07/19/21 14:30 Urine Urobilinogen < 2.0 mg/dL (<2.0) 07/19/21 14:30 Ur Leukocyte Esterase Neg (Negative) 07/19/21 14:30 Urine WBC (Auto) 1.0 /HPF (0.0-6.0) 07/19/21 14:30 Urine RBC (Auto) 0.0 /HPF (0.0-6.0) 07/19/21 14:30 Urine Bacteria (Auto) 1+ /HPF (Negative) 07/19/21 14:30 Calcium Oxalate Crystal 1+ 07/19/21 14:30 Hyaline Casts 1 /LPF 07/19/21 14:30 Urine Mucus Few /HPF 07/19/21 14:30 Salicylates < 0.3 mg/dL (2.8-20.0) L 07/19/21 14:21 Urine Opiates Screen Negative 07/19/21 14:30 Urine Methadone Screen Negative 07/19/21 14:30 Acetaminophen 5.0 ug/mL (10.0-30.0) L 07/19/21 14:21 Ur Barbiturates Screen Negative 07/19/21 14:30 Ur Phencyclidine Scrn Negative 07/19/21 14:30 Ur Amphetamines Screen Negative 07/19/21 14:30 U Benzodiazepines Scrn Negative 07/19/21 14:30 Urine Cocaine Screen Negative 07/19/21 14:30 U Marijuana (THC) Screen Negative 07/19/21 14:30 Drugs of Abuse Note Disclamer 07/19/21 14:30 Plasma/Serum Alcohol < 0.01 % (0-0.07) 07/19/21 14:21 Microbiology: Microbiology 07/19/21 14:21 Peripheral/Venous Blood Culture - Preliminary NO GROWTH AFTER 24 HOURS 07/19/21 15:13 Peripheral/Venous Blood Culture - Preliminary NO GROWTH AFTER 24 HOURS Emanuel/IV: Voiding Method Indwelling Catheter Active Medications - Current Medications Current Medications: Generic Name Dose Route Start Last Admin Trade Name Freq PRN Reason Stop Dose Admin Acetaminophen 650 mg 07/19/21 20:39 Acetaminophen 650 Mg Rect Supp [place] Q4H PRN Fever >101 Enoxaparin Sodium 30 mg 07/21/21 10:00 Enoxaparin 30 Mg/0.3 Ml Inj SUB-Q QDAY CASSANDRA Famotidine 10 mg 07/21/21 10:00 Famotidine 20 Mg/2 Ml Inj IV BID CASSANDRA Propofol 1,000 mg in 100 mls @ 1.837 mls/hr 07/19/21 14:00 07/21/21 08:20 Diprivan 10 Mg/Ml IV 0 mcg/kg/min TITR CASSANDRA 0 mls/hr Titration Protocol 5 MCG/KG/MIN Midazolam HCl 100 mg/ Sodium 100 mls @ 1 mls/hr 07/19/21 15:58 07/21/21 08:20 Chloride IV 07/23/21 19:57 0 mg/hr TITR ONE 0 mls/hr Titration Protocol 1 MG/HR Sodium Chloride 1,000 mls @ 100 mls/hr 07/19/21 21:00 Nacl 0.9% 1000 Ml IV DIRECT CASSANDRA Levetiracetam 1,000 mg/ 110 mls @ 400 mls/hr 07/19/21 22:00 07/20/21 22:18 Dextrose IV 400 mls/hr Q12HR CASSANDRA Administration Lorazepam 2 mg 07/21/21 00:10 Lorazepam 2 Mg/Ml Vial IV Q4H PRN seizures Morphine Sulfate 2 mg 07/19/21 20:47 Morphine 2 Mg/1 Ml Inj IV Q4H PRN Pain, Moderate (4-6) Ondansetron HCl 4 mg 07/19/21 20:47 Ondansetron 4 Mg/2 Ml Inj IV Q8H PRN Nausea And Vomiting Sodium Chloride 10 ml 07/19/21 22:00 07/20/21 22:18 Sodium Chloride 0.9% 10 Ml Flush Syringe IV 10 ml BID CASSANDRA Administration Sodium Chloride 10 ml 07/19/21 20:47 Sodium Chloride 0.9% 10 Ml Flush Syringe IV PRN PRN LINE FLUSH Sodium Chloride 10 ml 07/21/21 09:17 Sodium Chloride 0.9% 50 Ml Ivpb IV PRN PRN FLUSH
[2021-07-21 11:29] LABS: Calcium 9.4 mg/dL (8.4-10.2)
[2021-07-21 11:31] LABS: Hematocrit 47.1 % (35.5-45.6); Hemoglobin 15.2 gm/dl (11.8-15.2); Mean Corpuscular HGB Conc 32 % (32-34); Mean Corpuscular Volume 91 fl (84-94); Platelet Count 203 K/mm3 (140-440); Red Blood Count 5.15 M/mm3 (3.65-5.03)
[2021-07-21] MEDS: FAMOTIDINE 20 MG/2 ML INJ IV SCH ×2 (12:20→20:59)
[2021-07-21] MEDS: levETIRAcetam 1,000 MG in DEXTROSE 5% IN WATER 100 ML IV SCH ×2 (12:20→21:52)
[2021-07-21] MEDS ORDERED: DEXTROSE 5% IN WATER 1,000 ML IV SCH (15:00)
--- NOTE | 2021-07-21 16:55 | Magnetic Resonance Report ---
CT HEAD WITHOUT CONTRAST INDICATION / CLINICAL INFORMATION: CVA. TECHNIQUE: All CT scans at this location are performed using CT dose reduction for ALARA by means of automated e xposure control. COMPARISON: Head CT 07/19/2021 FINDINGS: HEMORRHAGE: No evidence of recent intracranial hemorrhage or extra-axial fluid collection. Remote blo od products are demonstrated along the frontal lobe cortex in the region of the middle frontal gyrus along the periphery of large area of encephalomalacia. EXTRA-AXIAL SPACES: Cortical dilatation of cortical sulci seen along the lateral convexity of the rig ht frontal lobe in the region of encephalomalacia. Elsewhere, the cortical sulci, sylvian fissures an d basilar cisterns have an unremarkable appearance. VENTRICULAR SYSTEM: The third and lateral ventricles are of normal size and configuration. CEREBRAL PARENCHYMA: Macrocystic and macrocystic encephalomalacia is observed along the anterolateral aspect of the right frontal lobe in the region of the right middle gyrus. This is likely secondary t o remote infarction, postoperative change or other old brain injury. Of this abnormality is adjacent to a right frontoparietal craniotomy defect better demonstrated on recent CT examination. Correlation with surgical history is suggested. MIDLINE SHIFT OR HERNIATION: There is no mass effect. CEREBELLUM / BRAINSTEM: Brainstem and cerebellum have an unremarkable appearance. MIDLINE STRUCTURES:No abnormalities of the pituitary gland or pineal region are identified. INTRACRANIAL VESSELS:No abnormalities are identified on this noncontrast head CT. ORBITS: visualized portions of the orbits have an unremarkable appearance. SOFT TISSUES of HEAD: No significant abnormality. CALVARIUM: Status post right frontoparietal craniotomy. Correlation with surgical history is advised. PARANASAL SINUSES / MASTOID AIR CELLS: Inflammatory mucosal disease is present within ethmoid air deann ls bilaterally. Mucosal changes are present at the bases of both maxillary sinuses. Inflammatory north ges are also observed in both frontal sinuses. Small air-fluid levels are present in the sphenoid sin uses bilaterally. These findings may represent a manifestation of pansinusitis. Minimal fluid signal intensity seen within several left-sided mastoid air cells. This likely reflects small mastoid effusi ons. IMPRESSION: 1. No acute intracranial abnormality. 2. Encephalomalacia right middle gyrus right frontal lobe adjacent to a remote craniotomy site. Corre lation with surgical history is advised. 3. Pansinusitis. Signer Name: Robin Chowdary MD Signed: 07/21/2021 4:51 PM Workstation Name: [id number]
--- NOTE | 2021-07-21 17:44 | Consultation ---
History of Present Illness - Reason for Consult Consult date: 07/22/21 acute renal failure, metabolic acidosis Requesting physician: MIKA FLOREZ - History of Present Illness 26-year-old male with history of TBI and seizure disorder noncompliant with medications brought in by EMS after having multiple seizures. It is unknown what seizure medication the patient is supposed to be taking. According to the EMS report, they were called out to the patient's home by the patient's mother who reported that the patient had 3 [id number] seizures lasting approximately 30 seconds. The patient had 2 more seizures in front of the EMS crew and then 3 seizures while in the ambulance in route. He was given 4 mg of IV Ativan which resolved one of the seizures but then shortly thereafter he began with tonic- clonic seizure activity after that. He never regained consciousness between the seizures. His fingerstick blood glucose was 140, blood pressure 130/67, heart rate of 90, and saturation of 99% on room air. Further details of the HPI are thus limited due to the patient's current clinical condition. - Past Medical History Previous Medical History?: Yes Hx Seizures: Yes ROS: Stated complaint: SIEZURE Other details as noted in HPI Comment: Unobtainable due to pts medical conditions Past History Past Medical History: seizures, other (Traumatic brain injury) Past Surgical History: Other Social history: lives with family Family history: hypertension Medications and Allergies Allergies Allergy/AdvReac Type Severity Reaction Status Date / Time Unable to Assess Allergy Verified 07/19/21 13:14 Active Meds: Active Medications Acetaminophen (Acetaminophen 650 Mg Rect Supp) 650 mg [place] Q4H PRN PRN Reason: Fever >101 Famotidine (Famotidine 20 Mg/2 Ml Inj) 10 mg IV BID [facility] Last Admin: 07/21/21 12:20 Dose: 10 mg Heparin Sodium (Porcine) (Heparin 5,000 Unit/1 Ml Vial) 5,000 unit SUB-Q Q12HR CASSANDRA Levetiracetam 1,000 mg/ (Dextrose) 110 mls @ 400 mls/hr IV Q12HR CASSANDRA Last Admin: 07/21/21 12:20 Dose: 400 mls/hr Sodium Bicarbonate 50 meq/ (Dextrose) 1,050 mls @ 150 mls/hr IV DIRECT CASSANDRA Lorazepam (Lorazepam 2 Mg/Ml Vial) 2 mg IV Q4H PRN PRN Reason: seizures Morphine Sulfate (Morphine 2 Mg/1 Ml Inj) 2 mg IV Q4H PRN PRN Reason: Pain, Moderate (4-6) Ondansetron HCl (Ondansetron 4 Mg/2 Ml Inj) 4 mg IV Q8H PRN PRN Reason: Nausea And Vomiting Sodium Chloride (Sodium Chloride 0.9% 10 Ml Flush Syringe) 10 ml IV BID CASSANDRA Last Admin: 07/21/21 15:39 Dose: 10 ml Sodium Chloride (Sodium Chloride 0.9% 10 Ml Flush Syringe) 10 ml IV PRN PRN PRN Reason: LINE FLUSH Sodium Chloride (Sodium Chloride 0.9% 50 Ml Ivpb) 10 ml IV PRN PRN PRN Reason: FLUSH Exam - Vital Signs Vital signs: Vital Signs Resp Pulse Ox 32 H 98 07/19/21 13:03 07/19/21 13:03 - Physical Exam Narrative exam: Physical Exam: GENERAL: Well developed and well nourished. Obtunded and unresponsive. HEAD: Normocephalic. No obvious signs of trauma. ENT: Moist mucous membranes. Foaming at the mouth. EYES: Patient's eyes are closed. When the eyelids are retracted, the right pupil is dilated while the left is constricted. The left eyes deviated up and out. Both pupils are reactive to light. NECK: Supple. Trachea is midline. LUNGS: Snoring respirations. Equal chest rise bilaterally. Clear to auscultation bilaterally. CARDIOVASCULAR: Tachycardic but with regular rhythm. No murmurs or rubs. VASCULAR: Cap refill < 2 seconds ABDOMEN: Abdomen is soft and nondistended. There is no significant guarding or rebound. SKIN: Skin is warm and dry NEURO: Patient is obtunded and unresponsive. Shivering and with intermittent posturing and muscle contractions. Increased tone throughout. MUSCULOSKELETAL: No obvious deformities. Results - Lab Results 07/22/21 08:11 07/22/21 08:11 Most recent lab results ABG pH 7.415 pH Units (7.350-7.450) 07/21/21 02:45 ABG pCO2 24.4 mm Hg 07/21/21 02:45 ABG pO2 181.6 mm Hg (80.0-90.0) H 07/21/21 02:45 ABG HCO3 15.3 mmol/L (20.0-26.0) L 07/21/21 02:45 ABG O2 Saturation 99.2 % (95.0-99.0) H 07/21/21 02:45 Calcium 9.4 mg/dL (8.4-10.2) 07/21/21 10:20 Magnesium 2.80 mg/dL (1.7-2.3) H 07/19/21 14:21 Assessment and Plan Impression: * ELGIN * ATN * Seizures disorder * metabolic acidosis * hypernatremia Plan: * aggressive ivf resuscitation * daily lytes and strict i/os * cr rise likely due to ATN from hypoperfusion * keep MAP>65 * aviod nephrotoxins * strict i/os and daily lytes * Na noted, increase free h20 * no emergent indication for EQUIPMENT SPECIALIST today
[2021-07-21] MEDS: SODIUM BICARBONATE IV SCH (18:23)
[2021-07-21] MEDS: WATER IV SCH (18:23)
[2021-07-21] MEDS: DEXTROSE 5% IV SCH (18:23)
[2021-07-21] MEDS ORDERED: HEPARIN 5,000 UNIT/1 ML VIAL SUB-Q SCH (22:00)
[2021-07-22] MEDS: DEXTROSE 5% IV SCH (01:21)
[2021-07-22] MEDS: WATER IV SCH (01:21)
[2021-07-22] MEDS: SODIUM BICARBONATE IV SCH (01:21)
[2021-07-22 04:39] VITALS: BP 130/81
[2021-07-22 08:20] LABS: Hematocrit 41.4 % (35.5-45.6); Hemoglobin 14.2 gm/dl (11.8-15.2); Mean Corpuscular HGB Conc 34 % (32-34); Mean Corpuscular Volume 91 fl (84-94); Platelet Count 203 K/mm3 (140-440); Red Blood Count 4.56 M/mm3 (3.65-5.03); Red Cell Distribution Width 13.5 % (13.2-15.2)
[2021-07-22 08:43] LABS: Calcium 9.4 mg/dL (8.4-10.2)
--- NOTE | 2021-07-22 09:56 | Progress Note ---
Assessment and Plan 26 y/o male with prior history of seizures and TBI admitted with status epilietpicus and per report, required intubation for airway protection. 07/22/21: Pulm status stable. Will sign off. 1. Extubated today 2. Seizure control per Neurology 3. Swallow eval if mental state will allow, if not will need to continue medications IV 4. Follow up any new Neurology recs. CCT 31 minutes. Subjective Date of service: 07/22/21 Interval history: Weaned to room air. Objective Vital Signs - 12hr 07/21/21 07/21/21 07/21/21 22:00 22:10 22:20 Temperature Pulse Rate 76 74 77 Pulse Rate [ From Monitor] Respiratory 16 16 14 Rate Blood Pressure 132/78 132/78 132/78 O2 Sat by Pulse 100 100 100 Oximetry 07/21/21 07/21/21 07/21/21 22:30 22:40 22:50 Temperature Pulse Rate 82 75 71 Pulse Rate [ From Monitor] Respiratory 15 13 13 Rate Blood Pressure 132/78 132/78 132/78 O2 Sat by Pulse 99 100 100 Oximetry 07/21/21 07/21/21 07/21/21 23:00 23:10 23:20 Temperature Pulse Rate 101 H 74 70 Pulse Rate [ From Monitor] Respiratory 10 L 13 13 Rate Blood Pressure 132/72 132/72 132/72 O2 Sat by Pulse 100 99 99 Oximetry 07/21/21 07/21/21 07/21/21 23:30 23:40 23:50 Temperature Pulse Rate 88 71 91 H Pulse Rate [ From Monitor] Respiratory 13 14 14 Rate Blood Pressure 132/72 132/72 132/72 O2 Sat by Pulse 99 99 100 Oximetry 07/22/21 07/22/21 07/22/21 00:00 00:04 00:10 Temperature 98.4 F Pulse Rate 83 68 80 Pulse Rate [ 92 H From Monitor] Respiratory Rate Blood Pressure 126/64 126/64 126/64 O2 Sat by Pulse 99 99 100 Oximetry 07/22/21 07/22/21 07/22/21 00:20 00:30 00:40 Temperature Pulse Rate 65 84 76 Pulse Rate [ From Monitor] Respiratory Rate Blood Pressure 126/64 126/64 126/64 O2 Sat by Pulse 99 98 100 Oximetry 07/22/21 07/22/21 07/22/21 00:50 01:00 01:10 Temperature Pulse Rate 59 L 93 H 65 Pulse Rate [ From Monitor] Respiratory Rate Blood Pressure 126/64 131/57 131/57 O2 Sat by Pulse 98 98 99 Oximetry 07/22/21 07/22/21 07/22/21 01:20 01:30 01:57 Temperature Pulse Rate 71 83 73 Pulse Rate [ From Monitor] Respiratory Rate Blood Pressure 131/57 131/57 115/76 O2 Sat by Pulse 98 98 100 Oximetry 07/22/21 07/22/21 07/22/21 02:00 03:54 04:33 Temperature 99.1 F Pulse Rate 65 88 Pulse Rate [ From Monitor] Respiratory 18 20 Rate Blood Pressure 130/81 O2 Sat by Pulse 98 100 100 Oximetry Gastrointestinal: normoactive bowel sounds Integumentary: normal CBC and BMP: 07/22/21 08:11 07/22/21 08:11 ABG, PT/INR, D-dimer: ABG ABG pH 7.415 pH Units (7.350-7.450) 07/21/21 02:45 ABG pCO2 24.4 mm Hg 07/21/21 02:45 ABG pO2 181.6 mm Hg (80.0-90.0) H 07/21/21 02:45 ABG O2 Saturation 99.2 % (95.0-99.0) H 07/21/21 02:45 PT/INR, D-dimer PT 15.3 Sec. (12.2-14.9) H 07/19/21 14:21 INR 1.09 (0.87-1.13) 07/19/21 14:21 Abnormal lab findings: Abnormal Labs 07/19/21 07/19/21 07/19/21 14:21 14:21 14:21 WBC 27.8 H RBC 5.28 H Hgb 16.2 H Hct 49.5 H Seg Neuts % (Manual) 90.0 H Lymphocytes % (Manual) 5.0 L Seg Neutrophils # Man 25.0 H Eosinophils # (Manual) 0.6 H PT 15.3 H ABG pH ABG pO2 ABG HCO3 ABG O2 Saturation ABG Base Excess Oxyhemoglobin Sodium Potassium 3.4 L Chloride 107.5 H Carbon Dioxide 15 L BUN Creatinine 1.4 H Glucose 108 H Lactic Acid Magnesium 2.80 H AST 44 H Ammonia Albumin Salicylates Acetaminophen 07/19/21 07/19/21 07/19/21 14:21 14:21 14:21 WBC RBC Hgb Hct Seg Neuts % (Manual) Lymphocytes % (Manual) Seg Neutrophils # Man Eosinophils # (Manual) PT ABG pH ABG pO2 ABG HCO3 ABG O2 Saturation ABG Base Excess Oxyhemoglobin Sodium Potassium Chloride Carbon Dioxide BUN Creatinine Glucose Lactic Acid Magnesium AST Ammonia 94.0 H Albumin Salicylates < 0.3 L Acetaminophen 5.0 L 07/19/21 07/19/21 07/20/21 14:45 15:59 04:12 WBC RBC Hgb Hct Seg Neuts % (Manual) Lymphocytes % (Manual) Seg Neutrophils # Man Eosinophils # (Manual) PT ABG pH 7.174 L* ABG pO2 104.0 H 227.3 H ABG HCO3 17.2 L 17.6 L ABG O2 Saturation 99.4 H ABG Base Excess -11.3 L -6.3 L Oxyhemoglobin 94.1 L Sodium Potassium Chloride Carbon Dioxide BUN Creatinine Glucose Lactic Acid 3.50 H* Magnesium AST Ammonia Albumin Salicylates Acetaminophen 07/20/21 07/20/21 07/21/21 05:48 05:48 02:45 WBC 21.0 H RBC Hgb Hct 45.9 H Seg Neuts % (Manual) 91.0 H Lymphocytes % (Manual) 6.5 L Seg Neutrophils # Man 19.1 H Eosinophils # (Manual) PT ABG pH ABG pO2 181.6 H ABG HCO3 15.3 L ABG O2 Saturation 99.2 H ABG Base Excess -7.1 L Oxyhemoglobin Sodium Potassium 3.5 L Chloride 115.2 H Carbon Dioxide 15 L BUN 23 H Creatinine 2.5 H D Glucose Lactic Acid Magnesium AST Ammonia Albumin 3.6 L Salicylates Acetaminophen 07/21/21 07/21/21 07/22/21 10:20 10:20 08:11 WBC 18.9 H 12.9 H RBC 5.15 H Hgb Hct 47.1 H Seg Neuts % (Manual) Lymphocytes % (Manual) Seg Neutrophils # Man Eosinophils # (Manual) PT ABG pH ABG pO2 ABG HCO3 ABG O2 Saturation ABG Base Excess Oxyhemoglobin Sodium 149 H Potassium Chloride 114.1 H Carbon Dioxide 16 L BUN 30 H Creatinine 4.1 H D Glucose Lactic Acid Magnesium AST Ammonia Albumin Salicylates Acetaminophen 07/22/21 08:11 WBC RBC Hgb Hct Seg Neuts % (Manual) Lymphocytes % (Manual) Seg Neutrophils # Man Eosinophils # (Manual) PT ABG pH ABG pO2 ABG HCO3 ABG O2 Saturation ABG Base Excess Oxyhemoglobin Sodium 149 H Potassium Chloride 113.2 H Carbon Dioxide 21 L BUN 24 H Creatinine 3.6 H Glucose Lactic Acid Magnesium 2.40 H AST Ammonia Albumin Salicylates Acetaminophen
[2021-07-22] MEDS ORDERED: DEXTROSE 5% IN WATER 1,000 ML IV SCH (10:00)
--- NOTE | 2021-07-22 12:57 | Progress Note ---
Assessment and Plan Assessment and Plan 25-year-old male with history of traumatic brain injury and seizure disorder noncompliant with medications, brought in by EMS for multiple seizures. Patient is very noncompliant. EMS was called by the patient's mother and report the patient had bacterial [id number] seizures lasting approximately 32seconds to 1 minute. Patient had 2 more seizures in front of the EMS and 3 seizures while in the ambulance. Patient was given 4 mg of area And was brought to the emergency room. In the emergency room because of recurrent seizures patient was intubated for protection of airway. 26-year-old male with history of TBI and seizure disorder noncompliant with medications brought in by EMS after having multiple seizures. It is unknown what seizure medication the patient is supposed to be taking. According to the EMS report, they were called out to the patient's home by the patient's mother who reported that the patient had 3 [id number] seizures lasting approximately 30 seconds. The patient had 2 more seizures in front of the EMS crew and then 3 seizures while in the ambulance in route. He was given 4 mg of IV Ativan which resolved one of the seizures but then shortly thereafter he began with tonic- clonic seizure activity after that. He never regained consciousness between the seizures. His fingerstick blood glucose was 140, blood pressure 130/67, heart rate of 90, and saturation of 99% on room air. Further details of the HPI are thus limited due to the patient's current clinical condition. - Patient Problems #Recurrent seizure on admissionwith possible Status epilepticus -Admited for evaluation -Intubated initally --currently extubated -started on Keppra 1000 mg Bid -CT brain is remarkable for remote right front encephalomalacia -MRI brain is with right middle gyrus and frontal encephalomalacia -EEG isunremarkable -seizure precaution -hx of poor compliance with medications -Hx of traumatic brain injuryX5 years ago # Acute respiratory failure with hypoxia he is extubated # Dehydration - Initial BUN/Cr#23/2.3 ---149/3.6 -IV fluids for now # Leukocytosis -Possible demargination -Meningitis unlikely -IV Rocephin empirically # Hypokalemia -supplemented # Acute kidney injury -IV fluids for now # DVT prophylaxis -On heparin and GI prophylaxis PLAN 1- Maintain keppra 1000 mg bid for now 2- pt is instructed to comply with medications 3- no driving 4- Hydration will follow kidney function 5- MRI brain and EEG is noted Subjective Date of service: 07/22/21 Principal diagnosis: seizure,TBI Interval history: doing well today alert oriented Hx of TBI 5ys ago with recurrent seizure he forget to take medications due to being busy he works in a [employer] , no driving Objective - Vital Sign Vital Signs - 12hr 07/22/21 07/22/21 07/22/21 01:00 01:10 01:20 Temperature Pulse Rate 93 H 65 71 Respiratory Rate Blood Pressure 131/57 131/57 131/57 O2 Sat by Pulse 98 99 98 Oximetry 07/22/21 07/22/21 07/22/21 01:30 01:57 02:00 Temperature Pulse Rate 83 73 65 Respiratory 18 Rate Blood Pressure 131/57 115/76 O2 Sat by Pulse 98 100 98 Oximetry 07/22/21 07/22/21 03:54 04:33 Temperature 99.1 F Pulse Rate 88 Respiratory 20 Rate Blood Pressure 130/81 O2 Sat by Pulse 100 100 Oximetry - General Apperance Constitutional: comfortable - EENT EENT: PERRL, mucous membranes moist - Respiratory Respiratory: chest non-tender, lungs clear, rhonchi - Cardiovascular Cardiovascular: regular rate, normal S1, normal S2 Extremities: no peripheral edema bilat, no clubbing, cyanosis - Gastrointestinal Gastrointestinal: normoactive bowel sounds - Integumentary Integumentary: normal - Neurologic Cranial nerve examination: PERRL, EOMI, intact Speech examination: intact Detailed motor examination: grossly full strength in - Laboratory Findings CBC and BMP: 07/22/21 08:11 07/22/21 08:11 Abnormal Lab Findings: Abnormal Labs 07/19/21 07/19/21 07/19/21 14:21 14:21 14:21 WBC 27.8 H RBC 5.28 H Hgb 16.2 H Hct 49.5 H Seg Neuts % (Manual) 90.0 H Lymphocytes % (Manual) 5.0 L Seg Neutrophils # Man 25.0 H Eosinophils # (Manual) 0.6 H PT 15.3 H ABG pH ABG pO2 ABG HCO3 ABG O2 Saturation ABG Base Excess Oxyhemoglobin Sodium Potassium 3.4 L Chloride 107.5 H Carbon Dioxide 15 L BUN Creatinine 1.4 H Glucose 108 H Lactic Acid Magnesium 2.80 H AST 44 H Ammonia Albumin Salicylates Acetaminophen 07/19/21 07/19/21 07/19/21 14:21 14:21 14:21 WBC RBC Hgb Hct Seg Neuts % (Manual) Lymphocytes % (Manual) Seg Neutrophils # Man Eosinophils # (Manual) PT ABG pH ABG pO2 ABG HCO3 ABG O2 Saturation ABG Base Excess Oxyhemoglobin Sodium Potassium Chloride Carbon Dioxide BUN Creatinine Glucose Lactic Acid Magnesium AST Ammonia 94.0 H Albumin Salicylates < 0.3 L Acetaminophen 5.0 L 07/19/21 07/19/21 07/20/21 14:45 15:59 04:12 WBC RBC Hgb Hct Seg Neuts % (Manual) Lymphocytes % (Manual) Seg Neutrophils # Man Eosinophils # (Manual) PT ABG pH 7.174 L* ABG pO2 104.0 H 227.3 H ABG HCO3 17.2 L 17.6 L ABG O2 Saturation 99.4 H ABG Base Excess -11.3 L -6.3 L Oxyhemoglobin 94.1 L Sodium Potassium Chloride Carbon Dioxide BUN Creatinine Glucose Lactic Acid 3.50 H* Magnesium AST Ammonia Albumin Salicylates Acetaminophen 07/20/21 07/20/21 07/21/21 05:48 05:48 02:45 WBC 21.0 H RBC Hgb Hct 45.9 H Seg Neuts % (Manual) 91.0 H Lymphocytes % (Manual) 6.5 L Seg Neutrophils # Man 19.1 H Eosinophils # (Manual) PT ABG pH ABG pO2 181.6 H ABG HCO3 15.3 L ABG O2 Saturation 99.2 H ABG Base Excess -7.1 L Oxyhemoglobin Sodium Potassium 3.5 L Chloride 115.2 H Carbon Dioxide 15 L BUN 23 H Creatinine 2.5 H D Glucose Lactic Acid Magnesium AST Ammonia Albumin 3.6 L Salicylates Acetaminophen 07/21/21 07/21/21 07/22/21 10:20 10:20 08:11 WBC 18.9 H 12.9 H RBC 5.15 H Hgb Hct 47.1 H Seg Neuts % (Manual) Lymphocytes % (Manual) Seg Neutrophils # Man Eosinophils # (Manual) PT ABG pH ABG pO2 ABG HCO3 ABG O2 Saturation ABG Base Excess Oxyhemoglobin Sodium 149 H Potassium Chloride 114.1 H Carbon Dioxide 16 L BUN 30 H Creatinine 4.1 H D Glucose Lactic Acid Magnesium AST Ammonia Albumin Salicylates Acetaminophen 07/22/21 08:11 WBC RBC Hgb Hct Seg Neuts % (Manual) Lymphocytes % (Manual) Seg Neutrophils # Man Eosinophils # (Manual) PT ABG pH ABG pO2 ABG HCO3 ABG O2 Saturation ABG Base Excess Oxyhemoglobin Sodium 149 H Potassium Chloride 113.2 H Carbon Dioxide 21 L BUN 24 H Creatinine 3.6 H Glucose Lactic Acid Magnesium 2.40 H AST Ammonia Albumin Salicylates Acetaminophen
--- NOTE | 2021-07-22 16:45 | Discharge Summary ---
Providers - Providers Date of Admission: 07/19/21 14:00 Date of discharge: 07/22/21 Attending physician: MIKA FLOREZ 07/19/21 21:02 Consult to Physician [CONS] Routine Comment: Consulting Provider: GIO DAVEY Physician Instructions: Reason For Exam: Status epilepticus 07/19/21 21:11 Consult to Dietitian/Nutrition [CONS] Routine Physician Instructions: Reason For Exam: Tube feeding Reason for Consult: Pt needs oral supplement 07/21/21 14:31 Consult to Physician [CONS] Urgent Comment: called office/ jenni Consulting Provider: JEOY LEE Physician Instructions: Reason For Exam: ELGIN Primary care physician: CORPORATE REPRESENTATIVE Hospitalization Condition: Critical Disposition: 01 HOME / SELF CARE / HOMELESS - Discharge Diagnoses (1) Acute respiratory failure with hypoxia Status: Acute (2) Status epilepticus Status: Acute (3) Acute encephalopathy Status: Acute (4) Dehydration Status: Acute (5) Leukocytosis Status: Acute (6) Hypokalemia Status: Acute (7) Acute kidney injury Status: Acute (8) DVT prophylaxis Status: Acute (9) Advance care planning Status: Acute Exam - Constitutional Vitals: Temp Pulse Resp BP Pulse Ox 99.1 F 88 20 130/81 100 07/22/21 04:33 07/22/21 04:33 07/22/21 04:33 07/22/21 04:33 07/22/21 04:33 Plan Follow up with: PRIMARY CAREMD [Primary Care Provider] - 3-5 Days
== END 2021-07-22 20:00 | disposition home or self-care (01) | DRG 208 ==
LOC: ED 13:03 → CC1 14:00 → 4A 07-22 03:08
PROVIDERS: ADMIT Internal Medicine; ATTEND Internal Medicine
PROC: 5A1945Z Respiratory Ventilation, 24-96 Consecutive Hours (ICD-10-PCS; principal; 2021-07-19)
PROC: 0BH17EZ Insertion of Endotracheal Airway into Trachea, Via Natural or Artificial Opening (ICD-10-PCS; 2021-07-19)
PROC: 4A033R1 Measurement of Arterial Saturation, Peripheral, Percutaneous Approach (ICD-10-PCS; 2021-07-19)
DX: J96.01 Acute respiratory failure with hypoxia (principal); N17.0 Acute kidney failure with tubular necrosis; E87.2 Acidosis; G93.40 Encephalopathy, unspecified; E87.0 Hyperosmolality and hypernatremia; G40.901 Epilepsy, unspecified, not intractable, with status epilepticus; I10 Essential (primary) hypertension; E87.6 Hypokalemia; E86.0 Dehydration; D72.829 Elevated white blood cell count, unspecified
CPT/HCPCS: 36415; 36600; 70450; 70551; 71045; 80048; 80053; 80076; 80307; 80320; 81001; 82140; 82803; 83735; 84100; 85007; 85025; 85027; 85610; 85730; 87040; 87086; 94002; 94003; 94760; 95819; G0378; J3490; J7060; J7120; Q0162; G0480; J0696; J1644; J1650; J1953; J2060; J2250; J2704; J3370; J7030; J7040; J7070